=== PATIENT | male | born 1960 | race Caucasian/White ===

== ENCOUNTER 2016-06-02 21:50 | Emergency (ER) | payer MEDICARE, OTHER ==
[~2016-06-02] VITALS: Ht 167.6 cm; Wt 85.0 kg
[~2016-06-02 21:50] MED LIST: ASPI-664 PO; ATOR20TA38 PO; CLOP75TA27 PO; DULO30CA47 PO; GLIM4TAB PO; LANT3I SC; LISI-313 PO; METO-448 PO; MIRT15TA5 PO; NOVO3I SC; POLY17PO6 PO; TRAZ150T65 PO
[2016-06-02 21:58] VITALS: Ht 167.6 cm; Wt 85.0 kg
[2016-06-02] MEDS ORDERED: EPINEPHrine 1 MG INJ SC STA (22:18)
[2016-06-02] MEDS ORDERED: EPINEPHrine 1 MG INJ ONE (22:20)
--- NOTE | 2016-06-02 22:23 | ERD ---
ER Documentation Chief Complaint Date/Time DATE: 06/02/16 TIME: 22:21 Chief Complaint allergic reaction after taking chocolate w/ almnds 15 minutes ago HPI Patient is a 55-year-old male who ate some chocolate with almonds and at 15 minutes prior to presentation. He immediately felt generally bad with nausea and vomiting. He developed a diffuse red rash with sweating. He is never had this happen to him before. He was feeling fine prior to eating the chocolate with almonds. At the time of presentation after several episodes of vomiting he states he is actually feeling slightly better. He denies any chest pain, shortness of breath, sore throat, otalgia. He did feel a little dizzy earlier but denies any loss of consciousness. He has not had any diarrhea, dysuria, hematuria, flank pain, or back pain. He denies any abnormal bleeding or bruising. In the remainder of the systems are negative. ROS All systems reviewed and are negative except as per history of present illness. Medications Home Meds Active Scripts Polyethylene Glycol* (Miralax*) 17 Gm Powd.pack, 17 GM PO DAILY, #7 Prov:JANEEN TORIBIO MD 12/06/15 Aspirin* (Aspirin* EC) 81 Mg Tabec, 81 MG PO DAILY for 30 Days, 9 Refills Prov:JENNIFER POOL S. 03/12/15 Atorvastatin Calcium* (Atorvastatin Calcium*) 20 Mg Tab, 80 MG PO DAILY@21 for 30 Days, TAB 3 Refills Prov:JENNIFER POOL S. 03/12/15 Clopidogrel Bisulfate (Clopidogrel) 75 Mg Tab, 75 MG PO DAILY for 30 Days, TAB 9 Refills Prov:JENNIFER POOL S. 03/12/15 Reported Medications Duloxetine Hcl* (Duloxetine Hcl*) 30 Mg Capsule.dr, 30 MG PO DAILY, #30 CAP 12/06/15 Trazodone Hcl* (Trazodone Hcl*) 150 Mg Tablet, 150 MG PO QHS, #30 TAB 12/06/15 Mirtazapine* (Mirtazapine*) 15 Mg Tablet, 15 MG PO HS, TAB 12/06/15 Glimepiride* (Glimepiride*) 4 Mg Tablet, 4 MG PO WITH BREAKFAST, TAB 12/06/15 Insulin Glargine* (Lantus*) 100 Unit/Ml Soln, 10-12 UNIT SC BID, #1 VIAL 12/06/15 Insulin Aspart* (Novolog Insulin Pen*) 100 Unit/Ml Soln, 0 SC .SLIDING SCALE AC , EA WITH MEALS 12/06/15 Metoprolol Tartrate* (Lopressor*) 25 Mg Tab, 25 MG PO DAILY, #60 TAB 12/06/15 Lisinopril* (Lisinopril*) 5 Mg Tablet, 5 MG PO DAILY, #30 TAB 12/06/15 Allergies Allergies: Coded Allergies: No Known Allergy (Verified , 12/06/15) Uncoded Allergies: CAT (Allergy, Severe, SWELLING, 06/22/06) PMhx/Soc History of Surgery: Yes (PCI) Anesthesia Reaction: No Hx Neurological Disorder: No Hx Respiratory Disorders: No Hx Cardiac Disorders: Yes Hx Psychiatric Problems: No Hx Miscellaneous Medical Probl: Yes (diabetes, dyslipidemia.) Hx Alcohol Use: No Hx Substance Use: No Hx Tobacco Use: Yes (1 pack per day for over 35 years.) Physical Exam Vitals Vital Signs Date Time Temp Pulse Resp B/P Pulse Ox O2 Delivery O2 Flow Rate FiO2 06/03/16 01:02 95 18 128/99 99 Nasal Cannula 3.0 06/02/16 23:29 89 24 153/104 94 Nasal Cannula 2.0 06/02/16 21:58 98.3 98 20 67/47 98 Physical Exam Const: [] Well-developed well-nourished male on the bed in obvious distress. He is pale, diaphoretic, and covered with a diffuse erythematous rash. Head: Atraumatic normocephalic Eyes: Normal Conjunctiva ENT: Normal External Ears, Nose and Mouth. Neck: Full range of motion..~ No meningismus. Resp: Clear to auscultation bilaterally Cardio: Regular rate and rhythm, no murmurs Abd: Soft, non tender, non distended. Normal bowel sounds Skin: Pale and diaphoretic, covered with a diffuse erythematous rash Back: No midline or flank tenderness Ext: No cyanosis, or edema Neur: Awake and alert, oriented 3 with, with GCS of 15, moves all extremities equally, nonfocal Psych: Normal Mood and Affect Results 24 hrs Current Medications Medications (Trade) Dose Ordered Sig/Lucila Route PRN Reason Start Time Stop Time Status Last Admin Dose Admin Epinephrine (EPINEPHrine) 0.3 mg ONCE STAT SC 06/02/16 22:18 06/02/16 22:21 DC 06/02/16 22:26 Methylprednisolone Sodium Succinate (Solu-Medrol) 125 mg ONCE ONCE IV 06/02/16 22:30 06/02/16 22:31 DC 06/02/16 22:26 Diphenhydramine HCl 50 mg 50 mg ONCE ONCE IV 06/02/16 22:30 06/02/16 22:31 DC 06/02/16 22:27 Sodium Chloride (NS) 1,000 ml @ 1,000 mls/hr Q1H ONCE IV 06/02/16 22:30 06/02/16 23:29 DC 06/02/16 22:27 Albuterol (Proventil 0.083% (Neb)) 2.5 mg ONCE STAT HHN 06/02/16 22:31 06/02/16 22:32 DC 06/02/16 22:38 Ondansetron HCl (Zofran Inj) 4 mg ONCE STAT IV 06/03/16 00:01 06/03/16 00:05 DC 06/03/16 01:01 Procedures/MDM Differential includes but is not limited to acute anaphylaxis, allergic reaction , food allergy EKG: Rate/Rhythm: Normal Sinus Rhythm at 100 bpm, Q waves noted in leads III and aVF consistent with an old infarct, when compared to his prior EKG the T -wave inversions have resolved. QRS, ST, T-waves: No changes consistent w/ acute ischemia Impression: No evidence of ischemia or arrhythmia 0114: Patient is much improved at this point. His blood pressure has recovered. The redness of his skin has resolved. He is no longer diaphoretic and pale. His lungs are clear to auscultation. He appears stable for discharge home. Departure Diagnosis: Primary Impression: Acute anaphylaxis Encounter type: initial encounter Qualified Code: T78.2XXA - Acute anaphylaxis, initial encounter Condition: Stable Patient Instructions: Anaphylaxis, General Additional Instructions: Take the steroids for the next few days. Take the Benadryl for the next few days. If you have another reaction like tonight then you should auto inject the EpiPen and go immediately to the closest emergency department. SONNY ROCK Jun 02, 2016 22:23
[2016-06-02] MEDS ORDERED: METHYLPREDNISOLONE 125 MG INJ IV ONE (22:30)
[2016-06-02] MEDS ORDERED: SOD CHLORIDE 0.9% 1,000 ML IV ONE (22:30)
[2016-06-02] MEDS ORDERED: DIPHENHYDRAMINE 50 MG INJ IV ONE (22:30)
[2016-06-02] MEDS ORDERED: ALBUTEROL 0.083% (NEB) 2.5 MG/3 ML AMP HHN STA (22:31)
[2016-06-03] MEDS ORDERED: ONDANSETRON 4 MG INJ IV STA (00:01)
[2016-06-03 01:02] VITALS: BP 128/99; PULSE 95; RESP 18
[2016-06-03] MEDS ORDERED: PRED20TA PO (01:17)
[2016-06-03] MEDS ORDERED: DIPH25CA6 PO (01:18)
[2016-06-03] MEDS ORDERED: EPIN0.3P4 INJ (01:19)
== END 2016-06-03 01:47 | disposition home or self-care (01) ==
LOC: E/R 21:50
DX: T78.1XXA Other adverse food reactions, not elsewhere classified, initial encounter (principal); F17.210 Nicotine dependence, cigarettes, uncomplicated; E11.9 Type 2 diabetes mellitus without complications; I25.2 Old myocardial infarction; Z79.4 Long term (current) use of insulin; Z79.82 Long term (current) use of aspirin; Z79.84 Long term (current) use of oral hypoglycemic drugs
CPT/HCPCS: 82962; 93005; 96372; 96374; 96375; 99284; J0171; J1200; J2405; J2930; J7030

== ENCOUNTER 2017-08-03 15:47 | Observation (INO) | END 2017-08-05 17:35 | disposition home or self-care (01) ==

== ENCOUNTER 2018-04-22 03:53 | Observation (INO) | payer MEDICARE, OTHER ==
[~2018-04-22] VITALS: Ht 172.7 cm; Wt 84.0 kg
[~2018-04-22 03:53] MED LIST changes: -ASPI-664 PO; +ASPI-817 PO; -ATOR20TA38 PO; +CLOP75TA19 PO; -CLOP75TA27 PO; -DULO30CA47 PO; +DULO60CA59 PO; +EVOL140P SQ; +EXEN2VIA SQ; +FAMO20TA18 PO; +INSU200I4 SQ; -LANT3I SC; +METF100010 PO; -MIRT15TA5 PO; -POLY17PO6 PO; +TAMS0.4C2 PO
[2018-04-22] MEDS ORDERED: ONDANSETRON 4 MG INJ IV STA (04:40)
[2018-04-22] MEDS ORDERED: NITROGLYCERIN (SL) 0.4 MG TAB SL PRN ×2 (05:00→06:00)
--- NOTE | 2018-04-22 05:10 | ERD ---
ER Documentation Chief Complaint Chief Complaint PT C/O EPIGASTRIC PAIN ,RADIATES TO BACK,N/V AND SOB.RECENT STENT PLACEMENT HPI 57-year-old male with a history of CAD, hypertension, diabetes, CABG, with recent PCI yesterday and stent placement presenting for epigastric pain that started 4 hours prior to arrival. He describes it as pressure-like, aching, radiating to his back, with associated chills, nausea, and nonbloody vomiting. He states he felt better after he vomited but he currently still has pain in the center of his chest that is aching, 3 out of 10, nonradiating. Denies associated diaphoresis.No fevers, diarrhea, hematochezia. He has not filled his medications that he was prescribed yet as he was just discharged from the hospital yesterday. 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 ROS All systems reviewed and are negative except as per history of present illness. Medications Home Meds Reported Medications Pantoprazole* (Pantoprazole*) 40 Mg Tablet.dr, 40 MG PO DAILY for 30 Days, #30 04/22/18 Icosapent Ethyl (VASCEPA) 1 Gm Capsule, 1 GM PO for 30 Days, #120 04/22/18 Ticagrelor* (Brilinta*) 90 Mg Tablet, 90 MG PO for 30 Days, #60 04/22/18 Nitroglycerin* (Nitroglycerin* SL) 0.4 Mg Tab.subl, 0.4 MG SL for 90 Days, #100 04/22/18 Exenatide Microspheres (Bydureon) 2 Mg Vial, 2 MG SQ Q7D, VIAL 08/03/17 Aspirin* (Aspirin* EC) 81 Mg Tablet.dr, 81 MG PO DAILY, TAB 08/03/17 Insulin Aspart* (Novolog Insulin Pen*) 100 Unit/Ml Soln, 0 SC .SLIDING SCALE AC, EA INJECT 6-10 UNITS BID 08/03/17 Insulin Degludec (Tresiba Flextouch U-200) 200 Unit/1 Ml Insuln.pen, 0 SQ QHS INJECT 40 OR 50 UNITS 08/03/17 Evolocumab (Repatha Sureclick) 140 Mg/1 Ml Pen.injctr, 140 MG SQ Q 14D 08/03/17 Trazodone Hcl* (Trazodone Hcl*) 150 Mg Tablet, 150 MG PO QHS, #30 TAB 08/03/17 Duloxetine Hcl* (Duloxetine Hcl*) 60 Mg Capsule.dr, 60 MG PO DAILY, #30 CAP 08/03/17 Metoprolol Tartrate* (Lopressor*) 25 Mg Tab, 25 MG PO DAILY, #60 TAB 08/03/17 Metformin Hcl* (Metformin Hcl*) 1,000 Mg Tablet, 1000 MG PO WITH BREAKFAST DINNE, #60 TAB 08/03/17 Clopidogrel Bisulfate* (Clopidogrel Bisulfate*) 75 Mg Tablet, 75 MG PO DAILY, #30 TAB 08/03/17 Tamsulosin Hcl* (Tamsulosin Hcl*) 0.4 Mg Cap.er.24h, 0.4 MG PO DAILY, CAP 08/03/17 Glimepiride* (Glimepiride*) 4 Mg Tablet, 4 MG PO WITH BREAKFAST DINNE, TAB 08/03/17 Famotidine* (Famotidine*) 20 Mg Tablet, 20 MG PO BID, #60 TAB 08/03/17 Lisinopril* (Lisinopril*) 5 Mg Tablet, 5 MG PO DAILY, #30 TAB 08/03/17 Allergies Allergies: Coded Allergies: Zjdihph-Abf-Meg Reductase Inhibitor (Verified Allergy, Intermediate, myalgias, 04/22/18) cat dander (Verified Allergy, Unknown, 04/22/18) cat pelt standardized allergenic ex (Unverified Allergy, Unknown, 04/22/18) PMhx/Soc History of Surgery: Yes (CABG 2016) Anesthesia Reaction: No Hx Neurological Disorder: No Hx Respiratory Disorders: No Hx Cardiac Disorders: Yes (MIx3, CAD, HLD, stents ) Hx Psychiatric Problems: No Hx Miscellaneous Medical Probl: Yes (DM) Hx Alcohol Use: Yes Hx Substance Use: No Hx Tobacco Use: No Smoking Status: Former smoker FmHx Family History: No diabetes Physical Exam Vitals Vital Signs Date Temp Pulse Resp B/P (MAP) Pulse Ox O2 O2 Flow FiO2 Time Delivery Rate 04/22/18 Nasal 2 04:40 Cannula 04/22/18 98.1 85 15 139/93 100 Room Air 04:40 (108) 04/22/18 98.1 86 16 169/89 100 03:57 (115) Physical Exam Const: No acute distress Head: Atraumatic Eyes: Normal Conjunctiva ENT: Normal External Ears, Nose and Mouth. Neck: Full range of motion. No meningismus. Resp: Clear to auscultation bilaterally Cardio: Regular rate and rhythm, no murmurs. 2+ distal pulses in all 4 extremities Abd: Soft, non tender, non distended. Normal bowel sounds Skin: No petechiae or rashes Back: No midline or flank tenderness Ext: No cyanosis, or edema Neur: Awake and alert, normal speech, moving all extremities Psych: Normal Mood and Affect Result Diagram: 04/22/1844804/22/18448 Results 24 hrs Laboratory Tests Test 04/22/18 04:49 White Blood Count 10.6 10^3/ul Red Blood Count 4.54 10^6/ul Hemoglobin 14.0 g/dl Hematocrit 40.0 % Mean Corpuscular Volume 88.1 fl Mean Corpuscular Hemoglobin 30.8 pg Mean Corpuscular Hemoglobin Concent 35.0 g/dl Red Cell Distribution Width 11.7 % Platelet Count 257 10^3/UL Mean Platelet Volume 9.9 fl Immature Granulocytes % 0.500 % Neutrophils % 73.8 % Lymphocytes % 18.7 % Monocytes % 5.6 % Eosinophils % 0.8 % Basophils % 0.6 % Nucleated Red Blood Cells % 0.0 /100WBC Immature Granulocytes # 0.050 10^3/ul Neutrophils # 7.8 10^3/ul Lymphocytes # 2.0 10^3/ul Monocytes # 0.6 10^3/ul Eosinophils # 0.1 10^3/ul Basophils # 0.1 10^3/ul Nucleated Red Blood Cells # 0.0 10^3/ul Sodium Level 139 mmol/L Potassium Level 4.4 mmol/L Chloride Level 101 mmol/L Carbon Dioxide Level 25 mmol/L Anion Gap 13 Blood Urea Nitrogen 17 mg/dl Creatinine 0.84 mg/dl Est Glomerular Filtrat Rate mL/min > 60 mL/min Glucose Level 260 mg/dl Calcium Level 9.7 mg/dl Troponin I 0.031 ng/ml Current Medications Medications Dose Sig/Lucila Start Time Status Last (Trade) Ordered Route PRN Stop Time Admin Dose Reason Admin 1 tab Q5M UP TO 3 04/22/18 DC 04/22/18 Nitroglycerin DOSES PRN 05:00 04:54 SL .CHEST 04/22/18 16:01 (Nitroglyceri PAIN n (Sl Tab) 0.4 Mg) Ondansetron 4 mg ONCE STAT 04/22/18 DC 04/22/18 HCl (Zofran IV 04:40 04:54 Inj) 04/22/18 04:42 Aspirin 324 mg ONCE ONCE 04/22/18 DC 04/22/18 (Aspirin) PO 05:30 05:32 04/22/18 05:31 Procedures/MDM EMERGENT LABS AND DIAGNOSTIC STUDIES: Lab Results above were reviewed and interpreted by me. CBC: no anemia or evidence of infection BMP: hyperglycemic. No evidence of electrolyte abnormality, renal failure Troponin within normal limits, not indicative of cardiac ischemia 12-lead EKG #1 was interpreted by Ruperto Boyce MD: Normal Sinus Rhythm with ventricular rate of 82 beats per minute Left axis deviation Normal intervals Inferior Q waves consistent with old inferior infarct No acute ST or T wave changes suggestive of acute ischemia or STEMI. 12-lead EKG #2 was interpreted by Ruperto Boyce MD: Normal Sinus Rhythm with ventricular rate of 82 beats per minute Left axis deviation Normal intervals Inferior Q waves consistent with old inferior infarct No acute ST or T wave changes suggestive of acute ischemia or STEMI. Unchanged compared to previous Radiology Results as interpreted by Radiology below were reviewed by Parvin Boyce MD: Chest x-ray: Hypoventilatory changes with slightly increased bibasilar atelectasis. Atherosclerotic vascular calcifications including aorta, carotid and coronary arterial. Initial Nursing notes reviewed. Previous Medical Records requested via the Electronic Health Record. EMERGENCY DEPARTMENT COURSE / MEDICAL DECISION MAKING: Patients symptoms are concerning for a cardiac etiology. Other etiologies considered were PE, aortic dissection, pneumonia, pneumothorax, esophageal rupture. Vitals were notable for hypertension. He was treated with nitroglycerin with improvement of his symptoms. EKG showed no acute ischemia. Initial troponin negative. CXR grossly unremarkable. However, patient has high risk of adverse events. Patient is not safe for discharge and will need inpatient monitoring and further evaluation. Further workup will be deferred to the inpatient team. Departure Diagnosis: Primary Impression: Chest pain Chest pain type: precordial pain Qualified Codes: R07.2 - Precordial pain Condition: Fair MAURY BOYCE MD Apr 22, 2018 05:10
[2018-04-22] MEDS ORDERED: ASPIRIN 81 MG TAB PO ONE (05:30)
[2018-04-22] MEDS ORDERED: ICOS1CAP PO (05:40)
[2018-04-22] MEDS ORDERED: TICA90TA PO (05:40)
[2018-04-22] MEDS ORDERED: NITR0.4T32 SL (05:40)
[2018-04-22] MEDS ORDERED: PANT40TA4 PO (05:40)
[2018-04-22] MEDS ORDERED: ACETAMINOPHEN 325 MG TAB PO PRN ×2 (06:00)
[2018-04-22] MEDS ORDERED: morphine 2 MG INJ IV PRN (06:00)
[2018-04-22] MEDS ORDERED: NACL 0.9% 3 ML SYG IV SCH (06:00)
[2018-04-22] MEDS ORDERED: ONDANSETRON 4 MG INJ IV PRN ×2 (06:00)
[2018-04-22] MEDS ORDERED: HYDROCODONE/APAP (5/325) TAB PO PRN (06:00)
[2018-04-22] MEDS ORDERED: INSULIN ASPART [NOVOLOG] 3 ML PEN SC SCH (06:30)
[2018-04-22] MEDS ORDERED: Insulin NOVOLOG SS MILD Algorithm (NPO/TPN/ENTERAL FEEDS) SC SCH (06:30)
--- NOTE | 2018-04-22 08:27 | HP ---
Date/Time of Note Date/Time of Note DATE: 04/22/18 TIME: 08:16 Assessment/Plan VTE Prophylaxis SCD applied (from Nsg): Yes Pharmacological prophylaxis: other Lines/Catheters IV Catheter Type (from Nrsg): Saline Lock Assessment/Plan Problems: (1) Chest pain Status: Acute Comment: He reportedly is status post PCI with stenting in the last 48 hours. He will be on Brilinta which is apparently what he had been on at discharge. My attempts to get an accurate rendition of his medication regimen from his family have not been successful despite multiple phone attempts. I will ask cardiology to see him to see if we can work out some of the details here. Qualifiers: Chest pain type: precordial pain Qualified Codes: R07.2 - Precordial pain (2) Systolic CHF with reduced left ventricular function, NYHA class 2 Status: Chronic Comment: Maintain medication treatment. (3) 3-vessel coronary artery disease Status: Chronic Comment: Noted and status post bypass, but recurrent disease. (4) Diabetes mellitus type 2 in nonobese Status: Chronic Comment: Maintain medication control. Given the recurrent disease he would be appropriate for usage of drugs that have had recent study evidence of helping to reduce this. This would be a drug such as Victoza, and the SGL T2 inhibitors (5) Mixed hyperlipidemia due to type 2 diabetes mellitus Status: Chronic Comment: Aggressive treatment. (6) Status post primary angioplasty with coronary stent Onset Date: ~ 04/20/2018 Status: Acute Comment: Brilinta and cardiology consult (7) History of four vessel coronary artery bypass graft Onset Date: ~ 06/29/2016 Status: Acute Comment: Noted Result Diagram: 04/22/18 0449 04/22/18 0449 Results 24hrs Laboratory Tests Test 04/22/18 04:49 White Blood Count 10.6 Red Blood Count 4.54 L Hemoglobin 14.0 Hematocrit 40.0 L Mean Corpuscular Volume 88.1 Mean Corpuscular Hemoglobin 30.8 Mean Corpuscular Hemoglobin Concent 35.0 Red Cell Distribution Width 11.7 Platelet Count 257 Mean Platelet Volume 9.9 Immature Granulocytes % 0.500 H Neutrophils % 73.8 Lymphocytes % 18.7 Monocytes % 5.6 Eosinophils % 0.8 Basophils % 0.6 Nucleated Red Blood Cells % 0.0 Immature Granulocytes # 0.050 H Neutrophils # 7.8 H Lymphocytes # 2.0 Monocytes # 0.6 Eosinophils # 0.1 Basophils # 0.1 Nucleated Red Blood Cells # 0.0 Sodium Level 139 Potassium Level 4.4 Chloride Level 101 Carbon Dioxide Level 25 Anion Gap 13 Blood Urea Nitrogen 17 Creatinine 0.84 Est Glomerular Filtrat Rate mL/min > 60 Glucose Level 260 H Calcium Level 9.7 Troponin I 0.031 HPI/ROS Admit Date/Time Admit Date/Time April 22, 2018 Hx of Present Illness 57-year-old [place] gentleman who was at [facility]. He had presented there with acute coronary symptoms and reportedly had PCI and stenting performed on April 20, 2018. He was discharged on 04/21/2018 but did not have a chance to go to the pharmacy to picker and sorter load and unload his medications. He reports he developed some symptoms, and then came here. He did not bring along any of the documentation paperwork her medication list or prescriptions from [facility] when he came here. I believe that he had the procedure performed by either Dr. Calabrese or Dr. Cesario GEE Constitutional: no complaints (Denies fevers chills or sweats) Eyes: no complaints ENT: no complaints Respiratory: no complaints Cardiovascular: chest pain (Accompanied with nausea and epigastric pain recently without symptoms) Gastrointestinal: no complaints Genitourinary: no complaints Musculoskeletal: no complaints Skin: no complaints Neurologic: no complaints Endocrine: no complaints Additional Comments My attempts to reach family members by using all the phone numbers in our records was unsuccessful and I have left voicemail is x3 PMH/Family/Social Past Medical History Medical History: angina, congestive heart failure, coronary artery disease, diabetes, high cholesterol, hypertension, other Medications Current Medications Nitroglycerin (Nitroglycerin (Sl Tab) 0.4 Mg) 1 tab Q5M UP TO 3 DOSES PRN SL .CHEST PAIN Last administered on 04/22/18at 04:54; Admin Dose 1 TAB; Start 04/22/18 at 05:00 Ondansetron HCl (Zofran Inj) 4 mg ER BRIDGE PRN IV NAUSEA/VOMITING; Start 04/07 08/23 at 06:00; Stop 04/23/18 at 05:59 Acetaminophen (Tylenol Tab) 650 mg ER BRIDGE PRN PO .MILD PAIN 1-3 OR TEMP; Start 04/22/18 at 06:00; Stop 04/23/18 at 05:59 Dextrose/Sodium Chloride 1,000 ml @ 70 mls/hr [id number] IV ; Start 04/22/18 at 05:58 IV Flush (NS 3 ml) 3 ml PER PROTOCOL IV ; Start 04/22/18 at 06:00 Ondansetron HCl (Zofran Inj) 4 mg Q6H PRN IV NAUSEA/VOMITING; Start 04/22/18 at 06:00 Nitroglycerin (Nitroglycerin (Sl Tab) 0.4 Mg) 1 tab Q5M PRN SL .CHEST PAIN; Start 04/22/18 at 06:00 Acetaminophen (Tylenol Tab) 650 mg Q6H PRN PO .PAIN 1-3 OR TEMP; Start 04/22/18 at 06:00 Acetaminophen/ Hydrocodone Bitart ([place] (5/325)) 1 tab Q6H PRN PO .PAIN 4-6; Start 04/22/18 at 06:00 Morphine Sulfate (morphine) 2 mg Q4H PRN IV .PAIN 7-10; Start 04/22/18 at 06:00 Duloxetine HCl (Cymbalta) 60 mg DAILY PO ; Start 04/22/18 at 09:00 Lisinopril (Zestril) 5 mg DAILY PO ; Start 04/22/18 at 09:00 Metoprolol Tartrate (Lopressor) 25 mg DAILY PO ; Start 04/22/18 at 09:00 Pantoprazole (Protonix Tab) 40 mg DAILY PO ; Start 04/22/18 at 09:00 Ticagrelor (Brilinta) 90 mg BID PO ; Start 04/22/18 at 09:00 Diagnostic Test (Pha) (Accu-Chek) 1 ea 02 XX ; Start 04/23/18 at 02:00 Aspirin (Aspirin) 81 mg DAILY PO ; Start 04/23/18 at 09:00 Insulin Aspart (Novolog Insulin Pen) (Adult SC Insulin - Mild Algorithm)... Q6 SC ; Start 04/22/18 at 06:30 Coded Allergies: cat dander (Verified Allergy, Unknown, 04/22/18) cat pelt standardized allergenic ex (Unverified Allergy, Unknown, 04/22/18) Past Surgical History Past Surgical Hx: no surgical history, angioplasty, coronary bypass surgery Family History Significant Family History: no pertinent family hx, diabetes, hypertension Social History Alcohol Use: none Smoking Status: Former smoker Drug Use: none Exam/Review of Systems Vital Signs Vitals Vital Signs Date Temp Pulse Resp B/P (MAP) Pulse Ox O2 O2 Flow FiO2 Time Delivery Rate 04/22/18 98.2 90 16 100/68 99 Room Air 06:45 (79) 04/22/18 2 04:40 Exam Constitutional: alert, oriented Psych: no complaints, anxiety Head: normocephalic, atraumatic Eyes: nl conjunctiva, EOMI, nl lids, nl sclera, PERRL ENMT: nl external ears & nose, nl lips & teeth, nl nasal mucosa & septum Neck: supple, non-tender Respiratory: clear to auscultation, normal air movement Cardiovascular: regular rate and rhythm, nl pulses, other (Midline sternotomy scar) Gastrointestinal: soft, nl liver, spleen, non-tender Musculoskeletal: nl extremities to inspection Extremities: normal pulses Neurological: BARTENDER MANAGER II-XII intact, nl mental status, nl speech ALEXIS OBREGON MD Apr 22, 2018 08:27
[2018-04-22] MEDS ORDERED: NON-FORMULARY/PATIENT OWN MED (Exenatide Microspheres (Bydureon) 2 MG) SQ SCH (08:30)
[2018-04-22] MEDS: DEXTROSE 5%-0.45% NACL 1,000 ML IV SCH ×3 (08:45→22:00)
[2018-04-22] MEDS ORDERED: METOPROLOL 25 MG TAB PO SCH (09:00)
[2018-04-22] MEDS ORDERED: ASPIRIN 81 MG TAB PO SCH (09:00)
[2018-04-22] MEDS: INSULIN ASPART [NOVOLOG] 3 ML PEN SC SCH ×4 (09:30→21:19)
[2018-04-22] MEDS: FAMOTIDINE 20 MG TAB PO SCH ×2 (09:51→21:15)
[2018-04-22] MEDS: FISH OIL 1,000 MG CAP PO SCH ×2 (09:51→21:13)
[2018-04-22] MEDS: DULOXETINE 30 MG CAP DR PO SCH (09:51)
[2018-04-22] MEDS: PANTOPRAZOLE (EC) 40 MG TAB PO SCH (09:51)
[2018-04-22] MEDS: FINASTERIDE 5 MG TAB PO SCH (09:51)
[2018-04-22] MEDS: TICAGRELOR 90 MG TABLET PO SCH ×2 (09:51→21:19)
[2018-04-22] MEDS ORDERED: GLUCOSE GEL 15 GRAM TUBE PO PRN ×2 (10:00)
[2018-04-22] MEDS ORDERED: GLUCOSE GEL 15 GRAM TUBE BUCCAL PRN (10:00)
[2018-04-22] MEDS ORDERED: GLUCAGON 1 MG INJ IM PRN (10:00)
[2018-04-22] MEDS ORDERED: DEXTROSE 50% 50 ML SYRINGE IV PRN ×2 (10:00)
[2018-04-22] MEDS: ACCU-CHEK XX SCH ×6 (10:00→21:00)
[2018-04-22] MEDS: METOPROLOL 25 MG TAB PO SCH ×2 (10:13→21:15)
[2018-04-22] MEDS: LISINOPRIL 5 MG TAB PO SCH (10:20)
[2018-04-22] MEDS ORDERED: ACCU-CHEK XX SCH (11:30)
--- NOTE | 2018-04-22 14:16 | CONS ---
Assessment/Plan Assessment/Plan Hospital Course (Demo Recall) 1. Chest pain appears to be nonanginal clinically 2. Coronary artery disease 3. History of recent PCI 4. History of coronary bypass graft 5. Diabetes 6. Ischemic cardiomyopathy 7. History of hypertension 8. History of dyslipidemia on PCS canine inhibitors at home Recommendations: Continue with aspirin and Brilinta. Importance of compliant with Brilinta were discussed with the patient given the fact that he has reported who have had PCI/stent done 2 days ago I have asked the nursing staff to obtain the old records from [facility]. No evidence of ST elevation MA with stent thrombosis of the EKG is noted. We will try to review the recent angiogram report. DC planning if patient does not have any significant other obstructive coronary artery that needs to be intervened on Continue with the beta-gaurav. Is not on a statin but is already on PCS canine inhibitor at home Continue KARI inhibitor as tolerated. Diabetic management as per internal medicine. Outpatient cardiology follow-up with his regular rn placement Esteban. Thank you for his referral. We will continue to follow along with you DIVINA YAN MD [facility] Consultation Date/Type/Reason Admit Date/Time April 22, 2018 Date of Consultation: Apr 22, 2018 Type of Consult Cardiology Reason for Consultation CHEST PAIN Requesting Provider: ALEXIS OBREGON MD Date/Time of Note DATE: 04/22/18 TIME: 14:11 Hx of Present Illness Interventional cardiology consultation note Chief complaint: Chest pain Reason for consult: Chest pain History of present illness: Thank you for this referral. History was obtained from the patient who is a poor historian. From discussion with the staff and physician and from review of the old chart This is a pleasant 49-year-old [place] gentleman with history of coronary artery disease status post three-vessel bypass surgery, who came to emergency room last night with complaint of chest pain. Patient states that 2 days ago he underwent elective coronary angiography and PCI at [facility]. He was discharged yesterday morning. Last night for about 4 hours he had anterior and right-sided chest pain. Patient is a poor historian and cannot describe the pain well. But he stated the pain was severe. The pain has resolved now. Allergies: No known drug allergies Medications he does not remember well Family history: Positive for coronary artery disease Social history: Has quit smoking Past medical history: Coronary artery disease status post MA status post multiple PCI's in the past status post coronary bypass graft hypertension dyslipidemia diabetes Review of system: Patient denies all others except for above-mentioned Past Medical History Home Meds Reported Medications Pantoprazole* (Pantoprazole*) 40 Mg Tablet.dr, 40 MG PO DAILY for 30 Days, #30 04/22/18 Icosapent Ethyl (VASCEPA) 1 Gm Capsule, 1 GM PO for 30 Days, #120 04/22/18 Ticagrelor* (Brilinta*) 90 Mg Tablet, 90 MG PO for 30 Days, #60 04/22/18 Nitroglycerin* (Nitroglycerin* SL) 0.4 Mg Tab.subl, 0.4 MG SL for 90 Days, #100 04/22/18 Exenatide Microspheres (Bydureon) 2 Mg Vial, 2 MG SQ Q7D, VIAL 08/03/17 Aspirin* (Aspirin* EC) 81 Mg Tablet.dr, 81 MG PO DAILY, TAB 08/03/17 Insulin Aspart* (Novolog Insulin Pen*) 100 Unit/Ml Soln, 0 SC .SLIDING SCALE AC, EA INJECT 6-10 UNITS BID 08/03/17 Insulin Degludec (Tresiba Flextouch U-200) 200 Unit/1 Ml Insuln.pen, 0 SQ QHS INJECT 40 OR 50 UNITS 08/03/17 Evolocumab (Repatha Sureclick) 140 Mg/1 Ml Pen.injctr, 140 MG SQ Q 14D 08/03/17 Trazodone Hcl* (Trazodone Hcl*) 150 Mg Tablet, 150 MG PO QHS, #30 TAB 08/03/17 Duloxetine Hcl* (Duloxetine Hcl*) 60 Mg Capsule.dr, 60 MG PO DAILY, #30 CAP 08/03/17 Metoprolol Tartrate* (Lopressor*) 25 Mg Tab, 25 MG PO DAILY, #60 TAB 08/03/17 Metformin Hcl* (Metformin Hcl*) 1,000 Mg Tablet, 1000 MG PO WITH BREAKFAST DINNE, #60 TAB 08/03/17 Clopidogrel Bisulfate* (Clopidogrel Bisulfate*) 75 Mg Tablet, 75 MG PO DAILY, #30 TAB 08/03/17 Tamsulosin Hcl* (Tamsulosin Hcl*) 0.4 Mg Cap.er.24h, 0.4 MG PO DAILY, CAP 08/03/17 Glimepiride* (Glimepiride*) 4 Mg Tablet, 4 MG PO WITH BREAKFAST DINNE, TAB 08/03/17 Famotidine* (Famotidine*) 20 Mg Tablet, 20 MG PO BID, #60 TAB 08/03/17 Lisinopril* (Lisinopril*) 5 Mg Tablet, 5 MG PO DAILY, #30 TAB 08/03/17 Medications Current Medications Nitroglycerin (Nitroglycerin (Sl Tab) 0.4 Mg) 1 tab Q5M UP TO 3 DOSES PRN SL .CHEST PAIN Last administered on 04/22/18at 04:54; Admin Dose 1 TAB; Start 04/22/18 at 05:00 Ondansetron HCl (Zofran Inj) 4 mg ER BRIDGE PRN IV NAUSEA/VOMITING; Start 04/22/18 at 06:00; Stop 04/23/18 at 05:59 Acetaminophen (Tylenol Tab) 650 mg ER BRIDGE PRN PO .MILD PAIN 1-3 OR TEMP; S tart 04/22/18 at 06:00; Stop 04/23/18 at 05:59 Dextrose/Sodium Chloride 1,000 ml @ 70 mls/hr [id number] IV Last administered on 04/22/18at 08:45; Admin Dose 70 MLS/HR; Start 04/22/18 at 05:58 IV Flush (NS 3 ml) 3 ml PER PROTOCOL IV ; Start 04/22/18 at 06:00 Ondansetron HCl (Zofran Inj) 4 mg Q6H PRN IV NAUSEA/VOMITING; Start 04/22/18 at 06:00 Nitroglycerin (Nitroglycerin (Sl Tab) 0.4 Mg) 1 tab Q5M PRN SL .CHEST PAIN; Start 04/22/18 at 06:00 Acetaminophen (Tylenol Tab) 650 mg Q6H PRN PO .PAIN 1-3 OR TEMP; Start 04/22/18 at 06:00 Acetaminophen/ Hydrocodone Bitart ([place] (5/325)) 1 tab Q6H PRN PO .PAIN 4-6; Start 04/22/18 at 06:00 Morphine Sulfate (morphine) 2 mg Q4H PRN IV .PAIN 7-10; Start 04/22/18 at 06:00 Duloxetine HCl (Cymbalta) 60 mg DAILY PO Last administered on 04/22/18 09:51; Admin Dose 60 MG; Start 04/22/18 at 09:00 Lisinopril (Zestril) 5 mg DAILY PO Last administered on 04/22/18 10:20; Admin Dose 5 MG; Start 04/22/18 at 09:00 Pantoprazole (Protonix Tab) 40 mg DAILY PO Last administered on 04/22/18 09:51; Admin Dose 40 MG; Start 04/22/18 at 09:00 Ticagrelor (Brilinta) 90 mg BID PO Last administered on 04/22/18 09:51; Admin Dose 90 MG; Start 04/22/18 at 09:00 Diagnostic Test (Pha) (Accu-Chek) 1 ea 02 XX ; Start 04/23/18 at 02:00 Aspirin (Aspirin) 81 mg DAILY PO ; Start 04/23/18 at 09:00 Metoprolol Tartrate (Lopressor) 25 mg BID PO Last administered on 04/22/18 10:13; Admin Dose 25 MG; Start 04/22/18 at 09:00 Famotidine (Pepcid) 20 mg BID PO Last administered on 04/22/18 09:51; Admin Dose 20 MG; Start 04/22/18 at 09:00 Metformin HCl (Glucophage) 1,000 mg WITH BREAKFAST DINNE PO ; Start 04/22/18 at 18:00 Tamsulosin HCl (Flomax) 0.4 mg DAILY@2100 PO ; Start 04/22/18 at 21:00 Trazodone HCl (Desyrel) 150 mg QHS PO ; Start 04/22/18 at 21:00 Miscellaneous Information 2 mg Q7D SQ ; Start 04/22/18 at 08:30; Status UNV Fish Oil (Fish Oil) 2,000 mg BID PO Last administered on 04/22/18 09:51; Admin Dose 2,000 MG; Start 04/22/18 at 09:00 Diagnostic Test (Pha) (Accu-Chek) 1 ea AC MEALS AND BEDTIME XX ; Start 04/22/18 at 11:30 Finasteride (Proscar) 5 mg QAM PO Last administered on 04/22/18 09:51; Admin Dose 5 MG; Start 04/22/18 at 09:00 Diagnostic Test (Pha) (Accu-Chek) 1 ea 02 XX ; Start 04/23/18 at 02:00 Diagnostic Test (Pha) (Accu-Chek) 1 ea 2 HOURS AFTER MEALS XX ; Start 04/22/18 at 10:00 Insulin Glargine (Lantus) 25 units DAILY@2000 SC ; Start 04/22/18 at 20:00 Insulin Aspart (Novolog Insulin Pen) NOVOLOG *MODERATE* ALGORITHM WITH MEALS BEDTIME SC ; Start 04/22/18 at 09:30 Empaglifozin (Jardiance) 10 mg DAILY@08 PO ; Start 04/23/18 at 08:00 Diagnostic Test (Pha) (Accu-Chek) 1 ea AC MEALS AND BEDTIME XX ; Start 04/22/18 at 11:30 Miscellaneous Information 1 ea NOTE XX ; Start 04/22/18 at 10:00 Glucose (Glutose) 15 gm Q15M PRN PO DECREASED GLUCOSE; Start 04/22/18 at 10:00 Glucose (Glutose) 22.5 gm Q15M PRN PO DECREASED GLUCOSE; Start 04/22/18 at 10:00 Dextrose (D50w Syringe) 25 ml Q15M PRN IV DECREASED GLUCOSE; Start 04/22/18 at 10:00 Dextrose (D50w Syringe) 50 ml Q15M PRN IV DECREASED GLUCOSE; Start 04/22/18 at 10:00 Glucagon (Glucagen) 1 mg Q15M PRN IM DECREASED GLUCOSE; Start 04/22/18 at 10:00 Glucose (Glutose) 15 gm Q15M PRN BUCCAL DECREASED GLUCOSE; Start 04/22/18 at 10:00 Allergies: Coded Allergies: cat dander (Verified Allergy, Unknown, 04/22/18) cat pelt standardized allergenic ex (Unverified Allergy, Unknown, 04/22/18) Past Surgical History Past Surgical Hx: no surgical history, angioplasty, coronary bypass surgery Social History Alcohol Use: none Smoking Status: Former smoker Drug Use: none Exam/Review of Systems Vital Signs Vitals Vital Signs Date Temp Pulse Resp B/P (MAP) Pulse Ox O2 O2 Flow FiO2 Time Delivery Rate 04/22/18 97.7 83 18 102/76 98 Room Air 12:55 (85) 04/22/18 2.0 09:56 Exam Exam General: no acute distress HEENT: NC/AT. pupils are equal. round. NECK: NO JVD. no stridor. CV: RRR. systolic murmur; no gallop or rubs. PULM: no wheezing or rhonchi. GI: SOFT, NT, ND, no rebound or guarding Extremity: trace B/L LE edema. no clubbing. neuro: awake and alert, OX3. Psych: calm and pleasant rectal: deferred : normal EKG was personally showed normal sinus rhythm inferior infarct age undetermined Labs Result Diagram: 04/22/189 04/22/189 Results 24hrs Laboratory Tests Test 04/22/18 04:49 04/22/18 08:38 04/22/18 12:40 04/22/18 13:41 White Blood Count 10.6 Red Blood Count 4.54 L Hemoglobin 14.0 Hematocrit 40.0 L Mean Corpuscular 88.1 Volume Mean Corpuscular 30.8 Hemoglobin Mean Corpuscular 35.0 Hemoglobin Concent Red Cell 11.7 Distribution Width Platelet Count 257 Mean Platelet Volume 9.9 Immature 0.500 H Granulocytes % Neutrophils % 73.8 Lymphocytes % 18.7 Monocytes % 5.6 Eosinophils % 0.8 Basophils % 0.6 Nucleated Red Blood 0.0 Cells % Immature 0.050 H Granulocytes # Neutrophils # 7.8 H Lymphocytes # 2.0 Monocytes # 0.6 Eosinophils # 0.1 Basophils # 0.1 Nucleated Red Blood 0.0 Cells # Sodium Level 139 Potassium Level 4.4 Chloride Level 101 Carbon Dioxide Level 25 Anion Gap 13 Blood Urea Nitrogen 17 Creatinine 0.84 Est Glomerular > 60 Filtrat Rate mL/min Glucose Level 260 H Calcium Level 9.7 Troponin I 0.031 0.026 Bedside Glucose 180 119 Creatine Kinase 117 Creatine Kinase 1.2 Index Creatinine Kinase MB 1.46 (Mass) Medications Medications Current Medications Nitroglycerin (Nitroglycerin (Sl Tab) 0.4 Mg) 1 tab Q5M UP TO 3 DOSES PRN SL .CHEST PAIN Last administered on 04/22/18at 04:54; Admin Dose 1 TAB; Start 04/22/18 at 05:00 Ondansetron HCl (Zofran Inj) 4 mg ER BRIDGE PRN IV NAUSEA/VOMITING; Start 04/22/18 at 06:00; Stop 04/23/18 at 05:59 Acetaminophen (Tylenol Tab) 650 mg ER BRIDGE PRN PO .MILD PAIN 1-3 OR TEMP; Start 04/22/18 at 06:00; Stop 04/23/18 at 05:59 Dextrose/Sodium Chloride 1,000 ml @ 70 mls/hr [id number] IV Last administered on 04/22/18at 08:45; Admin Dose 70 MLS/HR; Start 04/22/18 at 05:58 IV Flush (NS 3 ml) 3 ml PER PROTOCOL IV ; Start 04/22/18 at 06:00 Ondansetron HCl (Zofran Inj) 4 mg Q6H PRN IV NAUSEA/VOMITING; Start 04/22/18 at 06:00 Nitroglycerin (Nitroglycerin (Sl Tab) 0.4 Mg) 1 tab Q5M PRN SL .CHEST PAIN; Start 04/22/18 at 06:00 Acetaminophen (Tylenol Tab) 650 mg Q6H PRN PO .PAIN 1-3 OR TEMP; Start 04/22/18 at 06:00 Acetaminophen/ Hydrocodone Bitart ([place] (5/325)) 1 tab Q6H PRN PO .PAIN 4-6; Start 04/22/18 at 06:00 Morphine Sulfate (morphine) 2 mg Q4H PRN IV .PAIN 7-10; Start 04/22/18 at 06:00 Duloxetine HCl (Cymbalta) 60 mg DAILY PO Last administered on 04/22/18at 09:51; Admin Dose 60 MG; Start 04/22/18 at 09:00 Lisinopril (Zestril) 5 mg DAILY PO Last administered on 04/22/18at 10:20; Admin Dose 5 MG; Start 04/22/18 at 09:00 Pantoprazole (Protonix Tab) 40 mg DAILY PO Last administered on 04/22/18at 09:51; Admin Dose 40 MG; Start 04/22/18 at 09:00 Ticagrelor (Brilinta) 90 mg BID PO Last administered on 04/22/18at 09:51; Admin Dose 90 MG; Start 04/22/18 at 09:00 Diagnostic Test (Pha) (Accu-Chek) 1 ea 02 XX ; Start 04/23/18 at 02:00 Aspirin (Aspirin) 81 mg DAILY PO ; Start 04/23/18 at 09:00 Metoprolol Tartrate (Lopressor) 25 mg BID PO Last administered on 04/22/18at 10:13; Admin Dose 25 MG; Start 04/22/18 at 09:00 Famotidine (Pepcid) 20 mg BID PO Last administered on 04/22/18at 09:51; Admin Dose 20 MG; Start 04/22/18 at 09:00 Metformin HCl (Glucophage) 1,000 mg WITH BREAKFAST DINNE PO ; Start 04/22/18 at 18:00 Tamsulosin HCl (Flomax) 0.4 mg DAILY@2100 PO ; Start 04/22/18 at 21:00 Trazodone HCl (Desyrel) 150 mg QHS PO ; Start 04/22/18 at 21:00 Miscellaneous Information 2 mg Q7D SQ ; Start 04/22/18 at 08:30; Status UNV Fish Oil (Fish Oil) 2,000 mg BID PO Last administered on 04/22/18at 09:51; Admin Dose 2,000 MG; Start 04/22/18 at 09:00 Diagnostic Test (Pha) (Accu-Chek) 1 ea AC MEALS AND BEDTIME XX ; Start 04/22/18 at 11:30 Finasteride (Proscar) 5 mg QAM PO Last administered on 04/22/18at 09:51; Admin Dose 5 MG; Start 04/22/18 at 09:00 Diagnostic Test (Pha) (Accu-Chek) 1 ea 02 XX ; Start 04/23/18 at 02:00 Diagnostic Test (Pha) (Accu-Chek) 1 ea 2 HOURS AFTER MEALS XX ; Start 04/22/18 at 10:00 Insulin Glargine (Lantus) 25 units DAILY@2000 SC ; Start 04/22/18 at 20:00 Insulin Aspart (Novolog Insulin Pen) NOVOLOG *MODERATE* ALGORITHM WITH MEALS BEDTIME SC ; Start 04/22/18 at 09:30 Empaglifozin (Jardiance) 10 mg DAILY@08 PO ; Start 04/23/18 at 08:00 Diagnostic Test (Pha) (Accu-Chek) 1 ea AC MEALS AND BEDTIME XX ; Start 04/22/18 at 11:30 Miscellaneous Information 1 ea NOTE XX ; Start 04/22/18 at 10:00 Glucose (Glutose) 15 gm Q15M PRN PO DECREASED GLUCOSE; Start 04/22/18 at 10:00 Glucose (Glutose) 22.5 gm Q15M PRN PO DECREASED GLUCOSE; Start 04/22/18 at 10:00 Dextrose (D50w Syringe) 25 ml Q15M PRN IV DECREASED GLUCOSE; Start 04/22/18 at 10:00 Dextrose (D50w Syringe) 50 ml Q15M PRN IV DECREASED GLUCOSE; Start 04/22/18 at 10:00 Glucagon (Glucagen) 1 mg Q15M PRN IM DECREASED GLUCOSE; Start 04/22/18 at 10:00 Glucose (Glutose) 15 gm Q15M PRN BUCCAL DECREASED GLUCOSE; Start 04/22/18 at 10:00 DIVINA YAN MD Apr 22, 2018 14:16
[2018-04-22 15:54] VITALS: PULSE 79
[2018-04-22 16:10] VITALS: Ht 172.7 cm; Wt 84.0 kg
[2018-04-22] MEDS: metFORMIN 500 MG TAB PO SCH (17:52)
[2018-04-22 19:26] VITALS: BP 113/69; PULSE 77; RESP 18
[2018-04-22 20:27] VITALS: PULSE 92
[2018-04-22] MEDS: TAMSULOSIN (SR) 0.4 MG CAP PO SCH (21:14)
[2018-04-22] MEDS: traZODone 50 MG TAB PO SCH (21:15)
[2018-04-22] MEDS: INSULIN GLARGINE [LANTus] (100 UNITS/ML) SYG SC SCH (21:29)
[2018-04-22 23:41] VITALS: BP_SYST 79; BP_SYST 91; BP_DIAS 52; BP_DIAS 57; PULSE 87; PULSE 90; RESP 18
[2018-04-23] VITALS (12 sets, daily range): BP systolic 86–125; BP diastolic 49–77; PULSE 68–84; RESP 16–19
[2018-04-23] MEDS ORDERED: ACCU-CHEK XX SCH (02:00)
[2018-04-23] MEDS: ACCU-CHEK XX SCH ×8 (02:00→21:02)
[2018-04-23] MEDS: INSULIN ASPART [NOVOLOG] 3 ML PEN SC SCH ×4 (07:55→21:00)
[2018-04-23] MEDS: PANTOPRAZOLE (EC) 40 MG TAB PO SCH (08:53)
[2018-04-23] MEDS: FISH OIL 1,000 MG CAP PO SCH ×2 (08:53→20:59)
[2018-04-23] MEDS: ASPIRIN 81 MG TAB PO SCH (08:53)
[2018-04-23] MEDS: FINASTERIDE 5 MG TAB PO SCH (08:53)
[2018-04-23] MEDS: DULOXETINE 30 MG CAP DR PO SCH (08:54)
[2018-04-23] MEDS: EMPAGLIFLOZIN 10 MG TABLET PO SCH (08:54)
[2018-04-23] MEDS: metFORMIN 500 MG TAB PO SCH ×2 (08:57→17:33)
[2018-04-23] MEDS: LISINOPRIL 5 MG TAB PO SCH (09:00)
[2018-04-23] MEDS: METOPROLOL 25 MG TAB PO SCH ×2 (09:00→21:01)
[2018-04-23] MEDS: TICAGRELOR 90 MG TABLET PO SCH ×2 (09:00→21:05)
[2018-04-23] MEDS: FAMOTIDINE 20 MG TAB PO SCH ×2 (09:02→21:06)
--- NOTE | 2018-04-23 10:53 | DS ---
Date/Time of Note Date/Time of Note DATE: 04/23/18 TIME: 10:50 Discharge Summary Admission/Discharge Info Admit Date/Time Apr 22, 2018 at 05:54 Discharge Date/Time April 23, 2018 Discharge Diagnosis Gastroenteritis; coronary artery disease; status post PCI with stenting on 20 April 2018; hypertension; hyperlipidemia; diabetes mellitus type 2; coronary artery disease; status post CABG; systolic CHF Patient Condition: Fair Consults Cardiology-Dr. Forbes Hx of Present Illness 57-year-old [place] gentleman who was at [facility]. He had presented there with acute coronary symptoms and reportedly had PCI and stenting performed on April 20, 2018. 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 He reports he developed some symptoms, and then came here. He did not bring along any of the documentation paperwork her medication list or prescriptions from [facility] when he came here. I believe that he had the procedure performed by either Dr. Calabrese or Dr. Nassar Hospital Course 57-year-old gentleman who came to [facility] emergency room with some abdominal symptoms. The unusual part was that he had had had PCI with stenting literally within 36 hours of presenting in a not been taking his Brilinta. Fortunately cardiology feels that he has not had an issue but he absolutely positively must be on his Brilinta and antiplatelet therapy. He is now stable for discharge to his home and will follow up with his regular panel installer. Home Meds Reported Medications Pantoprazole* (Pantoprazole*) 40 Mg Tablet., 40 MG PO DAILY for 30 Days, #30 04/22/18 Icosapent Ethyl (VASCEPA) 1 Gm Capsule, 1 GM PO for 30 Days, #120 04/22/18 Ticagrelor* (Brilinta*) 90 Mg Tablet, 90 MG PO for 30 Days, #60 04/22/18 Nitroglycerin* (Nitroglycerin* SL) 0.4 Mg Tab.subl, 0.4 MG SL for 90 Days, #100 04/22/18 Exenatide Microspheres (Bydureon) 2 Mg Vial, 2 MG SQ Q7D, VIAL 08/03/17 Aspirin* (Aspirin* EC) 81 Mg Tablet., 81 MG PO DAILY, TAB 08/03/17 Insulin Aspart* (Novolog Insulin Pen*) 100 Unit/Ml Soln, 0 SC .SLIDING SCALE AC, EA INJECT 6-10 UNITS BID 08/03/17 Insulin Degludec (Tresiba Flextouch U-200) 200 Unit/1 Ml Insuln.pen, 0 SQ QHS INJECT 40 OR 50 UNITS 08/03/17 Evolocumab (Repatha Sureclick) 140 Mg/1 Ml Pen.injctr, 140 MG SQ Q 14D 08/03/17 Trazodone Hcl* (Trazodone Hcl*) 150 Mg Tablet, 150 MG PO QHS, #30 TAB 08/03/17 Duloxetine Hcl* (Duloxetine Hcl*) 60 Mg Capsule.dr, 60 MG PO DAILY, #30 CAP 08/03/17 Metoprolol Tartrate* (Lopressor*) 25 Mg Tab, 25 MG PO DAILY, #60 TAB 08/03/17 Metformin Hcl* (Metformin Hcl*) 1,000 Mg Tablet, 1000 MG PO WITH BREAKFAST DINNE, #60 TAB 08/03/17 Clopidogrel Bisulfate* (Clopidogrel Bisulfate*) 75 Mg Tablet, 75 MG PO DAILY, #30 TAB 08/03/17 Tamsulosin Hcl* (Tamsulosin Hcl*) 0.4 Mg Cap.er.24h, 0.4 MG PO DAILY, CAP 08/03/17 Glimepiride* (Glimepiride*) 4 Mg Tablet, 4 MG PO WITH BREAKFAST DINNE, TAB 08/03/17 Famotidine* (Famotidine*) 20 Mg Tablet, 20 MG PO BID, #60 TAB 08/03/17 Lisinopril* (Lisinopril*) 5 Mg Tablet, 5 MG PO DAILY, #30 TAB 08/03/17 Follow-up Plan Cardiology in 1 week, primary care physician in 2 weeks Primary Care Provider Ángel Haile MD Time spent on discharge: > 30 minutes Pending Labs Laboratory Tests Test 04/22/18 12:40 04/22/18 13:41 04/22/18 17:41 04/22/18 18:34 Creatine 117 97 Kinase IU/L (23-200) IU/L (23-200) Creatine Kinase 1.2 1.4 Index Creatinine 1.46 1.39 Kinase MB ng/ml (0.0-2.4) ng/ml (0.0-2.4 (Mass) ) Troponin I 0.026 0.022 ng/ml (0.000-0. ng/ml (0.000-0 120) .120) Bedside 119 147 Glucose mg/dL (70-220) mg/dL (70-220) Test 04/22/18 21:11 04/23/18 02:48 04/23/18 05:59 04/23/18 08:52 Bedside 215 146 114 Glucose mg/dL (70-220) mg/dL (70-220) mg/dL (70-220) Hemoglobin A1c 8.9 % (0-5.9) Copies To: CC: ÁNGEL HAILE MD ; ALEXIS OBREGON MD Apr 23, 2018 10:53
--- NOTE | 2018-04-23 15:00 | CONS ---
Consult Date/Type/Reason Admit Date/Time Apr 22, 2018 at 05:54 Initial Consult Date 04/22/18 Requesting Provider: ALEXIS OBREGON MD Date/Time of Note DATE: 04/23/18 TIME: 14:58 Subjective Interventional cardiology follow-up progress note Subjective: Case discussed with the staff. Patient with no more chest pain or pressure. Wants to go home. Old records still not able to obtain. Denies any palpitation to me Objective: General: no acute distress HEENT: NC/AT. pupils are equal. round. NECK: NO JVD. no stridor. CV: RRR. systolic murmur; no gallop or rubs. PULM: no wheezing or rhonchi. GI: SOFT, NT, ND, no rebound or guarding Extremity: trace B/L LE edema. no clubbing. neuro: awake and alert, OX3. Psych: calm and pleasant rectal: deferred : normal EKG was personally showed normal sinus rhythm inferior infarct age undetermined Objective Vitals Vital Signs Date Temp Pulse Resp B/P (MAP) Pulse Ox O2 O2 Flow FiO2 Time Delivery Rate 04/23/18 68 12:00 04/23/18 98.2 16 102/68 95 11:25 (79) 04/22/18 Room Air 15:30 04/22/18 2.0 09:56 Intake and Output 04/22/18 04/22/18 04/23/18 1515:00 23:00 07:00 IntakeIntake Total 420 ml 800 ml 600 ml BalanceBalance 420 ml 800 ml 600 ml Results/Medications Result Diagram: 04/22/18 0449 04/22/18 0449 Results 24 hrs Laboratory Tests Test 04/22/18 17:41 04/22/18 18:34 04/22/18 21:11 04/23/18 02:48 Bedside Glucose 147 215 146 Creatine Kinase 97 Creatine Kinase 1.4 Index Creatinine Kinase MB 1.39 (Mass) Troponin I 0.022 Test 04/23/18 05:59 04/23/18 08:52 04/23/18 12:07 Hemoglobin A1c 8.9 H Bedside Glucose 114 174 Home Meds Reported Medications Pantoprazole* (Pantoprazole*) 40 Mg Tablet., 40 MG PO DAILY for 30 Days, #30 04/22/18 Icosapent Ethyl (VASCEPA) 1 Gm Capsule, 1 GM PO for 30 Days, #120 04/22/18 Ticagrelor* (Brilinta*) 90 Mg Tablet, 90 MG PO for 30 Days, #60 04/22/18 Nitroglycerin* (Nitroglycerin* SL) 0.4 Mg Tab.subl, 0.4 MG SL for 90 Days, #100 04/22/18 Exenatide Microspheres (Bydureon) 2 Mg Vial, 2 MG SQ Q7D, VIAL 08/03/17 Aspirin* (Aspirin* EC) 81 Mg Tablet.dr, 81 MG PO DAILY, TAB 08/03/17 Insulin Aspart* (Novolog Insulin Pen*) 100 Unit/Ml Soln, 0 SC .SLIDING SCALE AC, EA INJECT 6-10 UNITS BID 08/03/17 Insulin Degludec (Tresiba Flextouch U-200) 200 Unit/1 Ml Insuln.pen, 0 SQ QHS INJECT 40 OR 50 UNITS 08/03/17 Evolocumab (Repatha Sureclick) 140 Mg/1 Ml Pen.injctr, 140 MG SQ Q 14D 08/03/17 Trazodone Hcl* (Trazodone Hcl*) 150 Mg Tablet, 150 MG PO QHS, #30 TAB 08/03/17 Duloxetine Hcl* (Duloxetine Hcl*) 60 Mg Capsule.dr, 60 MG PO DAILY, #30 CAP 08/03/17 Metoprolol Tartrate* (Lopressor*) 25 Mg Tab, 25 MG PO DAILY, #60 TAB 08/03/17 Metformin Hcl* (Metformin Hcl*) 1,000 Mg Tablet, 1000 MG PO WITH BREAKFAST DINNE, #60 TAB 08/03/17 Clopidogrel Bisulfate* (Clopidogrel Bisulfate*) 75 Mg Tablet, 75 MG PO DAILY, #30 TAB 08/03/17 Tamsulosin Hcl* (Tamsulosin Hcl*) 0.4 Mg Cap.er.24h, 0.4 MG PO DAILY, CAP 08/03/17 Glimepiride* (Glimepiride*) 4 Mg Tablet, 4 MG PO WITH BREAKFAST DINNE, TAB 08/03/17 Famotidine* (Famotidine*) 20 Mg Tablet, 20 MG PO BID, #60 TAB 08/03/17 Lisinopril* (Lisinopril*) 5 Mg Tablet, 5 MG PO DAILY, #30 TAB 08/03/17 Medications Current Medications Dextrose/Sodium Chloride 1,000 ml @ 70 mls/hr [id number] IV Last administered on 04/22/18at 22:00; Admin Dose 70 MLS/HR; Start 04/22/18 at 05:58 IV Flush (NS 3 ml) 3 ml PER PROTOCOL IV ; Start 04/22/18 at 06:00 Ondansetron HCl (Zofran Inj) 4 mg Q6H PRN IV NAUSEA/VOMITING; Start 04/22/18 at 06:00 Nitroglycerin (Nitroglycerin (Sl Tab) 0.4 Mg) 1 tab Q5M PRN SL .CHEST PAIN; Start 04/22/18 at 06:00 Acetaminophen (Tylenol Tab) 650 mg Q6H PRN PO .PAIN 1-3 OR TEMP; Start 04/22/18 at 06:00 Acetaminophen/ Hydrocodone Bitart ([place] (5/325)) 1 tab Q6H PRN PO .PAIN 4-6; Start 04/22/18 at 06:00 Morphine Sulfate (morphine) 2 mg Q4H PRN IV .PAIN 7-10; Start 04/22/18 at 06:00 Duloxetine HCl (Cymbalta) 60 mg DAILY PO Last administered on 04/23/18at 08:54; Admin Dose 60 MG; Start 04/22/18 at 09:00 Lisinopril (Zestril) 5 mg DAILY PO Last administered on 04/22/18at 10:20; Admin Dose 5 MG; Start 04/22/18 at 09:00 Pantoprazole (Protonix Tab) 40 mg DAILY PO Last administered on 04/23/18at 08:53; Admin Dose 40 MG; Start 04/22/18 at 09:00 Ticagrelor (Brilinta) 90 mg BID PO Last administered on 04/23/18at 09:00; Admin Dose 90 MG; Start 04/22/18 at 09:00 Aspirin (Aspirin) 81 mg DAILY PO Last administered on 04/23/18at 08:53; Admin Dose 81 MG; Start 04/23/18 at 09:00 Metoprolol Tartrate (Lopressor) 25 mg BID PO Last administered on 04/22/18at 21:15; Admin Dose 25 MG; Start 04/22/18 at 09:00 Famotidine (Pepcid) 20 mg BID PO Last administered on 04/23/18 09:02; Admin Dose 20 MG; Start 04/22/18 at 09:00 Metformin HCl (Glucophage) 1,000 mg WITH BREAKFAST DINNE PO Last administered on 04/23/18 08:57; Admin Dose 1,000 MG; Start 04/22/18 at 17:55 Tamsulosin HCl (Flomax) 0.4 mg DAILY@2100 PO Last administered on 04/22/18 21:14; Admin Dose 0.4 MG; Start 04/22/18 at 21:00 Trazodone HCl (Desyrel) 150 mg QHS PO Last administered on 04/22/18 21:15; Admin Dose 150 MG; Start 04/22/18 at 21:00 Miscellaneous Information 2 mg Q7D SQ ; Start 04/22/18 at 08:30; Status UNV Fish Oil (Fish Oil) 2,000 mg BID PO Last administered on 04/23/18 08:53; Admin Dose 2,000 MG; Start 04/22/18 at 09:00 Finasteride (Proscar) 5 mg QAM PO Last administered on 04/23/18 08:53; Admin Dose 5 MG; Start 04/22/18 at 09:00 Diagnostic Test (Pha) (Accu-Chek) 1 ea 02 XX Last administered on 04/23/18 02:00; Admin Dose 1 EA; Start 04/23/18 at 02:00 Diagnostic Test (Pha) (Accu-Chek) 1 ea 2 HOURS AFTER MEALS XX Last administered on 04/22/18 19:55; Admin Dose 1 EA; Start 04/22/18 at 10:00 Insulin Glargine (Lantus) 25 units DAILY@2000 SC Last administered on 04/22/18 21:29; Admin Dose 25 UNITS; Start 04/22/18 at 20:00 Insulin Aspart (Novolog Insulin Pen) NOVOLOG *MODERATE* ALGORITHM WITH MEALS BEDTIME SC Last administered on 04/23/18 12:15; Admin Dose 2 UNIT; Start 04/22/18 at 09:30 Empaglifozin (Jardiance) 10 mg DAILY@08 PO Last administered on 04/23/18 08:54; Admin Dose 10 MG; Start 04/23/18 at 08:00 Diagnostic Test (Pha) (Accu-Chek) 1 ea AC MEALS AND BEDTIME XX Last adm inistered on 04/22/18at 17:42; Admin Dose 1 EA; Start 04/22/18 at 11:30 Miscellaneous Information 1 ea NOTE XX ; Start 04/22/18 at 10:00 Glucose (Glutose) 15 gm Q15M PRN PO DECREASED GLUCOSE; Start 04/22/18 at 10:00 Glucose (Glutose) 22.5 gm Q15M PRN PO DECREASED GLUCOSE; Start 04/22/18 at 10:00 Dextrose (D50w Syringe) 25 ml Q15M PRN IV DECREASED GLUCOSE; Start 04/22/18 at 10:00 Dextrose (D50w Syringe) 50 ml Q15M PRN IV DECREASED GLUCOSE; Start 04/22/18 at 10:00 Glucagon (Glucagen) 1 mg Q15M PRN IM DECREASED GLUCOSE; Start 04/22/18 at 10:00 Glucose (Glutose) 15 gm Q15M PRN BUCCAL DECREASED GLUCOSE; Start 04/22/18 at 10:00 Assessment/Plan Hospital Course (Demo Recall) 1. Chest pain appears to be nonanginal clinically: Myocardial infarction has been ruled out 2. Coronary artery disease 3. History of recent PCI 4. History of coronary bypass graft 5. Diabetes 6. Ischemic cardiomyopathy 7. History of hypertension 8. History of dyslipidemia on PCS canine inhibitors at home Recommendations: Continue with aspirin and Brilinta. Importance of compliant with Brilinta were discussed with the patient given the fact that he has reported who have had PCI/stent done few days ago No evidence of ST elevation OR with stent thrombosis of the EKG is noted. We will try to review the recent angiogram report. DC planning if patient does not have any significant other obstructive coronary artery that needs to be intervened on Continue with the beta-gaurav. Is not on a statin but is already on PCS K9 inhibitor at home Continue KARI inhibitor as tolerated. Diabetic management as per internal medicine. 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 Thank you for his referral. We will continue to follow along with you DIVINA YAN MD [facility] DIVINA YAN MD Apr 23, 2018 15:00
[2018-04-23] MEDS: DEXTROSE 5%-0.45% NACL 1,000 ML IV SCH (17:36)
[2018-04-23] MEDS: traZODone 50 MG TAB PO SCH (20:59)
[2018-04-23] MEDS: TAMSULOSIN (SR) 0.4 MG CAP PO SCH (21:00)
[2018-04-23] MEDS: INSULIN GLARGINE [LANTus] (100 UNITS/ML) SYG SC SCH (21:05)
[2018-04-24] VITALS (7 sets, daily range): BP systolic 107–111; BP diastolic 56–64; PULSE 70–82; RESP 17–19
[2018-04-24] MEDS: DEXTROSE 5%-0.45% NACL 1,000 ML IV SCH (00:52)
[2018-04-24] MEDS: ACCU-CHEK XX SCH ×4 (00:55→11:20)
--- NOTE | 2018-04-24 07:44 | CONS ---
Assessment/Plan Assessment/Plan Assessment/Plan (Daily) 1. Chest pain appears to be nonanginal clinically: Myocardial infarction has been ruled out 2. Coronary artery disease 3. History of recent PCI 4. History of coronary bypass graft 5. Diabetes 6. Ischemic cardiomyopathy 7. History of hypertension 8. History of dyslipidemia on PCSK9 inhibitors at home Recommendations: Continue with aspirin and Brilinta. Importance of compliant with Brilinta were discussed with the patient given the fact that he has reported who have had PCI/stent done few days ago No evidence of ST elevation ME with stent thrombosis of the EKG is noted. DC planning if patient does not have any significant other obstructive coronary artery that needs to be intervened on Continue with the beta-gaurav. Is not on a statin but is already on PCS K9 inhibitor at home Continue KARI inhibitor as tolerated. Diabetic management as per internal medicine. 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 Consultation Date/Type/Reason Admit Date/Time Apr 22, 2018 at 05:54 Initial Consult Date 04/22/18 Type of Consult Cardiology Requesting Provider: ALEXIS OBREGON MD Date/Time of Note DATE: 04/24/18 TIME: 07:43 24 HR Interval Summary Free Text/Dictation the patient with no symptoms overnight Exam/Review of Systems Vital Signs Vitals Vital Signs Date Temp Pulse Resp B/P (MAP) Pulse Ox O2 O2 Flow FiO2 Time Delivery Rate 04/24/18 98.2 81 19 107/56 97 07:23 (73) 04/22/18 Room Air 15:30 04/22/18 2.0 09:56 Intake and Output 04/23/18 04/23/18 04/24/18 1515:00 23:00 07:00 IntakeIntake Total 1140 ml 1120 ml BalanceBalance 1140 ml 1120 ml Labs Result Diagram: 04/22/18 0449 04/22/18 0449 Results 24hrs Laboratory Tests Test 04/23/18 08:52 04/23/18 12:07 04/23/18 17:32 04/23/18 20:58 Bedside Glucose 114 174 87 169 Medications Medications Current Medications Dextrose/Sodium Chloride 1,000 ml @ 70 mls/hr [id number] IV Last administered on 04/23/18at 17:36; Admin Dose 70 MLS/HR; Start 04/22/18 at 05:58 IV Flush (NS 3 ml) 3 ml PER PROTOCOL IV ; Start 04/22/18 at 06:00 Ondansetron HCl (Zofran Inj) 4 mg Q6H PRN IV NAUSEA/VOMITING; Start 04/22/18 at 06:00 Nitroglycerin (Nitroglycerin (Sl Tab) 0.4 Mg) 1 tab Q5M PRN SL .CHEST PAIN; Start 04/22/18 at 06:00 Acetaminophen (Tylenol Tab) 650 mg Q6H PRN PO .PAIN 1-3 OR TEMP; Start 04/22/18 at 06:00 Acetaminophen/ Hydrocodone Bitart ([place] (5/325)) 1 tab Q6H PRN PO .PAIN 4-6; Start 04/22/18 at 06:00 Morphine Sulfate (morphine) 2 mg Q4H PRN IV .PAIN 7-10; Start 04/22/18 at 06:00 Duloxetine HCl (Cymbalta) 60 mg DAILY PO Last administered on 04/23/18at 08:54; Admin Dose 60 MG; Start 04/22/18 at 09:00 Lisinopril (Zestril) 5 mg DAILY PO Last administered on 04/22/18at 10:20; Admin Dose 5 MG; Start 04/22/18 at 09:00 Pantoprazole (Protonix Tab) 40 mg DAILY PO Last administered on 04/23/18at 08: 53; Admin Dose 40 MG; Start 04/22/18 at 09:00 Ticagrelor (Brilinta) 90 mg BID PO Last administered on 04/23/18at 21:05; Admin Dose 90 MG; Start 04/22/18 at 09:00 Aspirin (Aspirin) 81 mg DAILY PO Last administered on 04/23/18at 08:53; Admin Dose 81 MG; Start 04/23/18 at 09:00 Metoprolol Tartrate (Lopressor) 25 mg BID PO Last administered on 04/23/18at 21:01; Admin Dose 25 MG; Start 04/22/18 at 09:00 Famotidine (Pepcid) 20 mg BID PO Last administered on 04/23/18at 21:06; Admin Dose 20 MG; Start 04/22/18 at 09:00 Metformin HCl (Glucophage) 1,000 mg WITH BREAKFAST DINNE PO Last administered on 04/23/18 17:33; Admin Dose 1,000 MG; Start 04/22/18 at 17:55 Tamsulosin HCl (Flomax) 0.4 mg DAILY@2100 PO Last administered on 04/23/18 21:00; Admin Dose 0.4 MG; Start 04/22/18 at 21:00 Trazodone HCl (Desyrel) 150 mg QHS PO Last administered on 04/23/18 20:59; Admin Dose 150 MG; Start 04/22/18 at 21:00 Miscellaneous Information 2 mg Q7D SQ ; Start 04/22/18 at 08:30; Status UNV Fish Oil (Fish Oil) 2,000 mg BID PO Last administered on 04/23/18 20:59; Admin Dose 2,000 MG; Start 04/22/18 at 09:00 Finasteride (Proscar) 5 mg QAM PO Last administered on 04/23/18 08:53; Admin Dose 5 MG; Start 04/22/18 at 09:00 Diagnostic Test (Pha) (Accu-Chek) 1 ea 02 XX Last administered on 04/23/18 02:00; Admin Dose 1 EA; Start 04/23/18 at 02:00 Diagnostic Test (Pha) (Accu-Chek) 1 ea 2 HOURS AFTER MEALS XX Last administered on 04/23/18 19:55; Admin Dose 1 EA; Start 04/22/18 at 10:00 Insulin Glargine (Lantus) 25 units DAILY@2000 SC Last administered on 04/23/18 21:05; Admin Dose 25 UNITS; Start 04/22/18 at 20:00 Insulin Aspart (Novolog Insulin Pen) NOVOLOG *MODERATE* ALGORITHM WITH MEALS BE DTIME SC Last administered on 04/23/18 12:15; Admin Dose 2 UNIT; Start 04/22/18 at 09:30 Empaglifozin (Jardiance) 10 mg DAILY@08 PO Last administered on 04/23/18 08:54; Admin Dose 10 MG; Start 04/23/18 at 08:00 Diagnostic Test (Pha) (Accu-Chek) 1 ea AC MEALS AND BEDTIME XX Last administered on 04/23/18 21:02; Admin Dose 1 EA; Start 04/22/18 at 11:30 Miscellaneous Information 1 ea NOTE XX ; Start 04/22/18 at 10:00 Glucose (Glutose) 15 gm Q15M PRN PO DECREASED GLUCOSE; Start 04/22/18 at 10:00 Glucose (Glutose) 22.5 gm Q15M PRN PO DECREASED GLUCOSE; Start 04/22/18 at 10:00 Dextrose (D50w Syringe) 25 ml Q15M PRN IV DECREASED GLUCOSE; Start 04/22/18 at 10:00 Dextrose (D50w Syringe) 50 ml Q15M PRN IV DECREASED GLUCOSE; Start 04/22/18 at 10:00 Glucagon (Glucagen) 1 mg Q15M PRN IM DECREASED GLUCOSE; Start 04/22/18 at 10:00 Glucose (Glutose) 15 gm Q15M PRN BUCCAL DECREASED GLUCOSE; Start 04/22/18 at 10:00 MIRZA SHI MD Apr 24, 2018 07:44
[2018-04-24] MEDS: INSULIN ASPART [NOVOLOG] 3 ML PEN SC SCH (07:55)
[2018-04-24] MEDS: EMPAGLIFLOZIN 10 MG TABLET PO SCH (08:15)
[2018-04-24] MEDS: metFORMIN 500 MG TAB PO SCH (08:54)
[2018-04-24] MEDS: DULOXETINE 30 MG CAP DR PO SCH (09:25)
[2018-04-24] MEDS: ASPIRIN 81 MG TAB PO SCH (09:25)
[2018-04-24] MEDS: PANTOPRAZOLE (EC) 40 MG TAB PO SCH (09:25)
[2018-04-24] MEDS: FINASTERIDE 5 MG TAB PO SCH (09:25)
[2018-04-24] MEDS: FISH OIL 1,000 MG CAP PO SCH (09:26)
[2018-04-24] MEDS: METOPROLOL 25 MG TAB PO SCH (09:26)
[2018-04-24] MEDS: LISINOPRIL 5 MG TAB PO SCH (09:27)
[2018-04-24] MEDS: TICAGRELOR 90 MG TABLET PO SCH (09:30)
--- NOTE | 2018-04-24 11:16 | DS ---
Date/Time of Note Date/Time of Note DATE: 04/24/18 TIME: 11:03 Discharge Summary Admission/Discharge Info Admit Date/Time Apr 22, 2018 at 05:54 Discharge Date/Time Discharge Diagnosis 1. Chest pain, noncardiac, resolved 2. Coronary artery disease, s/p CABG, recent PCI/stent on 04/20/2018, emphasized importance of compliance with medications, especially brinlinta 3. Diabetes mellitus, stable, follow up with PCP 4. Ischemic cardiomyopathy, CHF, systolic, chronic, stable 7. Hypertension, controlled 8. Dyslipidemia on PCSK9 inhibitors at home Patient Condition: Stable Hospital Course 57-year-old [place] gentleman had PCI and stenting performed on April 20, 2018. 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 Patient presented with epigastric pain that started 4 hours prior to arrival. He describes it as pressure-like, aching, radiating to his back, with associated chills, nausea, and nonbloody vomiting. Symptoms improved after admission. Troponin is negative, ECG unremarkable. Epigastric pain is not considered cardiac, and it resolved. Importance of complicance with medications is repeatedly discussed with the patient especially the importance of brilinta. He will follow up with cardiology and PCP closely as outpatient. Home Meds Reported Medications Pantoprazole* (Pantoprazole*) 40 Mg Tablet.dr, 40 MG PO DAILY for 30 Days, #30 04/22/18 Icosapent Ethyl (VASCEPA) 1 Gm Capsule, 1 GM PO for 30 Days, #120 04/22/18 Ticagrelor* (Brilinta*) 90 Mg Tablet, 90 MG PO for 30 Days, #60 04/22/18 Nitroglycerin* (Nitroglycerin* SL) 0.4 Mg Tab.subl, 0.4 MG SL for 90 Days, #100 04/22/18 Exenatide Microspheres (Bydureon) 2 Mg Vial, 2 MG SQ Q7D, VIAL 08/03/17 Aspirin* (Aspirin* EC) 81 Mg Tablet.dr, 81 MG PO DAILY, TAB 08/03/17 Insulin Aspart* (Novolog Insulin Pen*) 100 Unit/Ml Soln, 0 SC .SLIDING SCALE AC, EA INJECT 6-10 UNITS BID 08/03/17 Insulin Degludec (Tresiba Flextouch U-200) 200 Unit/1 Ml Insuln.pen, 0 SQ QHS INJECT 40 OR 50 UNITS 08/03/17 Evolocumab (Repatha Sureclick) 140 Mg/1 Ml Pen.injctr, 140 MG SQ Q 14D 08/03/17 Trazodone Hcl* (Trazodone Hcl*) 150 Mg Tablet, 150 MG PO QHS, #30 TAB 08/03/17 Duloxetine Hcl* (Duloxetine Hcl*) 60 Mg Capsule.dr, 60 MG PO DAILY, #30 CAP 08/03/17 Metoprolol Tartrate* (Lopressor*) 25 Mg Tab, 25 MG PO DAILY, #60 TAB 08/03/17 Metformin Hcl* (Metformin Hcl*) 1,000 Mg Tablet, 1000 MG PO WITH BREAKFAST DINNE, #60 TAB 08/03/17 Tamsulosin Hcl* (Tamsulosin Hcl*) 0.4 Mg Cap.er.24h, 0.4 MG PO DAILY, CAP 08/03/17 Glimepiride* (Glimepiride*) 4 Mg Tablet, 4 MG PO WITH BREAKFAST DINNE, TAB 08/03/17 Famotidine* (Famotidine*) 20 Mg Tablet, 20 MG PO BID, #60 TAB 08/03/17 Lisinopril* (Lisinopril*) 5 Mg Tablet, 5 MG PO DAILY, #30 TAB 08/03/17 Discontinued Reported Medications Clopidogrel Bisulfate* (Clopidogrel Bisulfate*) 75 Mg Tablet, 75 MG PO DAILY, #30 TAB 08/03/17 Follow-up Plan Cardiology in 1 week, primary care physician in 2 weeks Primary Care Provider Kian Haile MD Pending Labs Laboratory Tests Test 04/23/18 12:07 04/23/18 17:32 04/23/18 20:58 04/24/18 08:06 Bedside 174 87 169 98 Glucose mg/dL (70-220) mg/dL (70-220) mg/dL (70-220) mg/dL (70-220) CHERYLE TURNER MD Apr 24, 2018 11:15
[2018-04-24] MEDS: FAMOTIDINE 20 MG TAB PO SCH (14:07)
[2018-04-24] MEDS ORDERED: EXENATIDE MICROSPHERES 2 MG XX SCH (14:30)
[2018-04-24] MEDS ORDERED: [UNRECOGNIZED DRUG - OTHER] XX SCH (14:30)
--- NOTE | 2018-04-25 07:45 | RADRPT ---
Echocardiogram Report Patient Name: TRISTAN MEDELLINPatient ID: [id number] : 1960 (57y 7m)Study Date: 04/24/2018 8:24:08 AM Gender: MAccession #: [id number] Tech: LE Location: Ref.Physician: KENDALL SON Height(Cm): BSA: Weight(Kg): Quality: GoodAccount #: Procedures: Echocardiographic Report: Transthoracic echocardiogram with complete 2D, M-Mode, and doppler examination. Indications: Atrial Fibrillation. Measurements: 2D/M Mode Doppler Measurement Value Normal Range Measurement Value Normal Range LVIDd 2D 4.4 [ 4.2 - 5.8 ] cm TARIQ Vmax 2.0 [ 2.0 - 4.0 ] cm2 LVIDs 2D 3.6 [ 2.5 - 4.0 ] cm AV Mean Charles 0.9 [ 70.0 - 90.0 ] cm/sec LVPWd 2D 1.1 [ 0.6 - 1.0 ] cm AV Mean PG 4.0 [ 2.0 - 4.0 ] mmHg IVSd 2D 1.1 [ 0.6 - 1.0 ] cm AV Peak Charles 1.2 [ 100.0 - 170.0 ] cm/sec IVS/LVPW 2D 1.1 ratio AV Peak PG 5.0 [ 2.0 - 9.0 ] mmHg LVOT Diam 2.0 [ 2.3 - 2.9 ] cm AV VTI 21.7 cm LVOT Area 3.1 cm2 LVOT Peak Charles 0.8 [ 70.0 - 110.0 ] cm/sec LVOT Peak PG 2.0 [ 2.0 - 6.0 ] mmHg MV E Peak Charles 0.6 [ 60.0 - 130.0 ] cm/sec MV A Peak Charles 0.7 [ 100.0 - 120.0 ] cm/sec MV E/A 0.9 [ 0.8 - 1.5 ] ratio MV Decel Time 208 [ 104 - 258 ] msec Lat E` Charles 0.1 [ 10.0 - 15.0 ] cm/sec Med E` Charles 0.0 cm/sec MV E/A 0.9 [ 0.8 - 1.5 ] ratio PV Peak Charles 0.8 [ 40.0 - 80.0 ] cm/sec PV Peak PG 2.0 mmHg Findings: Left Ventricle: Lower limits of normal systolic function. Ejection fraction is visually estimated at 45-50 %. Tissue Doppler/Mitral Doppler indices are consistent with impaired relaxation (Stage I diastolic dysfunction). Multiple segmental wall motion abnormalities. These segments of the LV are hypokinetic inferior base segment and inferior mid segment. Right Ventricle: Normal right ventricular size. Normal right ventricular systolic function. Left Atrium: The left atrium is normal in size. Right Atrium: The right atrium is normal in size. Atrial Septum: Normal atrial septum. Mitral Valve: Normal appearance of the mitral valve. Trace mitral regurgitation. Aortic Valve: Normal appearance of the aortic valve. No significant aortic stenosis or insufficiency. Trace aortic valve regurgitation. Tricuspid Valve: Normal appearance of the tricuspid valve. Unable to obtain RVSP due to minimal presence of tricuspid regurgitation. There is trace tricuspid regurgitation. Pulmonic Valve: Normal pulmonic valve appearance. There is trace pulmonic regurgitation. Pericardium: Normal pericardium with no significant pericardial effusion. No pleural effusion noted. Aorta: Normal aortic root. IVC: The IVC is not well visualized. Pulmonary Artery: Normal pulmonary artery size. Conclusions: Lower limits of normal systolic function. Ejection fraction is visually estimated at 45-50 %. Tissue Doppler/Mitral Doppler indices are consistent with impaired relaxation (Stage I diastolic dysfunction). Multiple segmental wall motion abnormalities. These segments of the LV are hypokinetic inferior base segment and inferior mid segment. Normal appearance of the mitral valve. Trace mitral regurgitation. Normal appearance of the aortic valve. No significant aortic stenosis or insufficiency. Trace aortic valve regurgitation. Normal appearance of the tricuspid valve. Unable to obtain RVSP due to minimal presence of tricuspid regurgitation. There is trace tricuspid regurgitation. Electronically Signed By: Javi Forbes 2018-04-25 07:44:41 PST
== END 2018-04-24 16:03 | disposition home or self-care (01) ==
LOC: E/R 03:53 → TEL 05:54
PROVIDERS: ADMIT Internal Medicine; ATTEND Internal Medicine
DX: R07.89 Other chest pain (principal); I25.10 Atherosclerotic heart disease of native coronary artery without angina pectoris; Z95.1 Presence of aortocoronary bypass graft; Z95.5 Presence of coronary angioplasty implant and graft; I11.0 Hypertensive heart disease with heart failure; I50.22 Chronic systolic (congestive) heart failure; E11.9 Type 2 diabetes mellitus without complications; Z79.4 Long term (current) use of insulin; I25.5 Ischemic cardiomyopathy; E78.2 Mixed hyperlipidemia
CPT/HCPCS: 36415; 71045; 80048; 82550; 82553; 82962; 83036; 84484; 85025; 93005; 93306; 96374; 99285; G0378; J1815; J2405; J7042

== ENCOUNTER 2018-04-27 23:54 | Observation (INO) | payer MEDICARE, OTHER ==
[~2018-04-27] VITALS: Ht 175.3 cm; Wt 85.4 kg
[~2018-04-27 23:54] MED LIST changes: -CLOP75TA19 PO; +ICOS1CAP PO; +NITR0.4T32 SL; +PANT40TA4 PO; +TICA90TA PO
[2018-04-28] VITALS (8 sets, daily range): BP systolic 99–126; BP diastolic 62–76; PULSE 72–95; RESP 18–20; Ht 175.3 cm; Wt 85.4 kg
[2018-04-28] MEDS ORDERED: ONDANSETRON 4 MG INJ IV STA (00:01)
[2018-04-28] MEDS ORDERED: NITROGLYCERIN 2% 1 GM OINT PKT TD STA (00:01)
[2018-04-28] MEDS ORDERED: morphine 4 MG/ML VIAL IV STA (00:01)
--- NOTE | 2018-04-28 01:22 | ERD ---
ER Documentation Chief Complaint Chief Complaint BIB RA100 for CP HPI 57-year-old gentleman history of CABG, recent stent 1 week ago at [facility] who presents with chest pain. He describes it is substernal, pressure-like, consistent with anginal equivalent. Aspirin and nitro given prior to arrival. Patient was recently hospitalized and discharged 4 days ago for similar. No fevers chills cough or pleuritic pain. ROS All systems reviewed and are negative except as per history of present illness. Medications Home Meds Reported Medications Pantoprazole* (Pantoprazole*) 40 Mg Tablet.dr, 40 MG PO DAILY for 30 Days, #30 04/22/18 Icosapent Ethyl (VASCEPA) 1 Gm Capsule, 1 GM PO for 30 Days, #120 04/22/18 Ticagrelor* (Brilinta*) 90 Mg Tablet, 90 MG PO for 30 Days, #60 04/22/18 Nitroglycerin* (Nitroglycerin* SL) 0.4 Mg Tab.subl, 0.4 MG SL for 90 Days, #100 04/22/18 Exenatide Microspheres (Bydureon) 2 Mg Vial, 2 MG SQ Q7D, VIAL 08/03/17 Aspirin* (Aspirin* EC) 81 Mg Tablet.dr, 81 MG PO DAILY, TAB 08/03/17 Insulin Aspart* (Novolog Insulin Pen*) 100 Unit/Ml Soln, 0 SC .SLIDING SCALE AC, EA INJECT 6-10 UNITS BID 08/03/17 Insulin Degludec (Tresiba Flextouch U-200) 200 Unit/1 Ml Insuln.pen, 0 SQ QHS INJECT 40 OR 50 UNITS 08/03/17 Evolocumab (Repatha Sureclick) 140 Mg/1 Ml Pen.injctr, 140 MG SQ Q 14D 08/03/17 Trazodone Hcl* (Trazodone Hcl*) 150 Mg Tablet, 150 MG PO QHS, #30 TAB 08/03/17 Duloxetine Hcl* (Duloxetine Hcl*) 60 Mg Capsule.dr, 60 MG PO DAILY, #30 CAP 08/03/17 Metoprolol Tartrate* (Lopressor*) 25 Mg Tab, 25 MG PO DAILY, #60 TAB 08/03/17 Metformin Hcl* (Metformin Hcl*) 1,000 Mg Tablet, 1000 MG PO WITH BREAKFAST DINNE, #60 TAB 5/30/18 Tamsulosin Hcl* (Tamsulosin Hcl*) 0.4 Mg Cap.er.24h, 0.4 MG PO DAILY, CAP 08/03/17 Glimepiride* (Glimepiride*) 4 Mg Tablet, 4 MG PO WITH BREAKFAST DINNE, TAB 08/03/17 Famotidine* (Famotidine*) 20 Mg Tablet, 20 MG PO BID, #60 TAB 08/03/17 Lisinopril* (Lisinopril*) 5 Mg Tablet, 5 MG PO DAILY, #30 TAB 08/03/17 Discontinued Reported Medications Clopidogrel Bisulfate* (Clopidogrel Bisulfate*) 75 Mg Tablet, 75 MG PO DAILY, #30 TAB 08/03/17 Allergies Allergies: Coded Allergies: Lljpnqr-Shw-Joi Reductase Inhibitor (Verified Allergy, Intermediate, myalgias, 04/22/18) cat dander (Verified Allergy, Unknown, 04/22/18) cat pelt standardized allergenic ex (Unverified Allergy, Unknown, 04/22/18) PMhx/Soc History of Surgery: Yes (CARDIAC STENT PLACEMENT X4) Anesthesia Reaction: No Hx Neurological Disorder: No Hx Respiratory Disorders: No Hx Cardiac Disorders: Yes (HTN) Hx Psychiatric Problems: No Hx Miscellaneous Medical Probl: No Hx Substance Use: No Hx Tobacco Use: Yes (2 years ago) Smoking Status: Former smoker FmHx Family History: coronary disease; No diabetes Physical Exam Vitals Vital Signs Date Temp Pulse Resp B/P (MAP) Pulse Ox O2 O2 Flow FiO2 Time Delivery Rate 04/28/18 80 14 132/77 96 Room Air 01:18 (95) 04/28/18 98.1 78 16 136/82 99 00:01 (100) Physical Exam General: Well developed, well nourished, no acute distress Head: Normocephalic, atraumatic. Eyes: Pupils equally reactive, EOM intact ENT: Moist mucous membranes Neck: Supple, no lymphadenopathy Respiratory: Lungs clear bilaterally, no distress Cardiovascular: RRR, no murmurs, rubs, or gallops Abdominal: Soft, non-tender, non-distended, no peritoneal signs : Deferred MSK: No edema, no unilateral swelling, 5/5 strength Neurologic: Alert and oriented, moving all extremities, normal speech, no focal weakness, no cerebellar signs Skin: No rash Psych: Normal mood Result Diagram: 04/28/18 0016 04/28/18 0016 Results 24 hrs Laboratory Tests Test 04/28/18 00:16 White Blood Count 9.0 10^3/ul Red Blood Count 4.49 10^6/ul Hemoglobin 13.7 g/dl Hematocrit 39.5 % Mean Corpuscular Volume 88.0 fl Mean Corpuscular Hemoglobin 30.5 pg Mean Corpuscular Hemoglobin Concent 34.7 g/dl Red Cell Distribution Width 11.9 % Platelet Count 324 10^3/UL Mean Platelet Volume 10.0 fl Immature Granulocytes % 0.400 % Neutrophils % 59.4 % Lymphocytes % 30.6 % Monocytes % 6.9 % Eosinophils % 2.3 % Basophils % 0.4 % Nucleated Red Blood Cells % 0.0 /100WBC Immature Granulocytes # 0.040 10^3/ul Neutrophils # 5.3 10^3/ul Lymphocytes # 2.7 10^3/ul Monocytes # 0.6 10^3/ul Eosinophils # 0.2 10^3/ul Basophils # 0.0 10^3/ul Nucleated Red Blood Cells # 0.0 10^3/ul Sodium Level 139 mmol/L Potassium Level 4.0 mmol/L Chloride Level 103 mmol/L Carbon Dioxide Level 21 mmol/L Anion Gap 15 Blood Urea Nitrogen 21 mg/dl Creatinine 0.79 mg/dl Est Glomerular Filtrat Rate mL/min > 60 mL/min Glucose Level 159 mg/dl Calcium Level 9.7 mg/dl Troponin I < 0.012 ng/ml Current Medications Medications Dose Sig/Lucila Start Time Status Last (Trade) Ordered Route PRN Stop Time Admin Dose Reason Admin 1 inch ONCE STAT 04/28/18 DC 04/28/18 Nitroglycerin TD 00:01 00:24 04/28/18 00:03 (Nitroglyceri n 2% Oint) Morphine 4 mg ONCE STAT 04/28/18 DC 04/28/18 Sulfate IV 00:01 00:23 (morphine) 04/28/18 00:03 Ondansetron 4 mg ONCE STAT 04/28/18 DC 04/28/18 HCl (Zofran IV 00:01 00:23 Inj) 04/28/18 00:03 Ondansetron 4 mg ER BRIDGE 04/28/18 HCl (Zofran PRN IV 01:30 Inj) NAUSEA/VOMITI 04/29/18 01:29 NG 650 mg ER BRIDGE 04/28/18 Acetaminophen PRN PO 01:30 (Tylenol .MILD PAIN 04/29/18 01:29 Tab) 1-3 OR TEMP Procedures/MDM EKG, MONITORS, & DIAGNOSTIC IMAGING: EKG: I reviewed and interpreted a 12-lead EKG. Rhythm: Normal sinus rhythm ST Changes: No contiguous ST segment elevations T waves: No contiguous T wave inversions Impression: No evidence of acute cardiac ischemia Repeat EKG: EKG: I reviewed and interpreted a 12-lead EKG. Rhythm: Normal sinus rhythm ST Changes: No contiguous ST segment elevations T waves: No contiguous T wave inversions Impression: No evidence of acute cardiac ischemia Chest x-ray: I reviewed and interpreted a 1 view of the chest Mediastinum: No enlargement Cardiac silhouette: No cardiomegaly Airspace: Clear lung borges bilaterally without evidence of pneumothorax Bones: No evidence of fracture PROCEDURES: None LAB INTERPRETATION: Negative initial troponin MEDICAL DECISION MAKING: The patient's history, physical exam and clinical presentation is concerning for possible cardiogenic etiology and acute coronary syndrome. Based on the patient's clinical exam and history and risk factors, I have a much lower clinical concern for pulmonary embolism, acute aortic dissection, pneumothorax, pneumonia, cardiac tamponade HEART Score: Greater than 4 MACE Rate: 60.6% Shared Decision Making: We had a conversation regarding risk stratification, MACE rate, and the risks, benefits, alternatives of disposition planning opti ons. Disposition planning: Admission ER COURSE: * Aspirin, nitro, morphine provided * Chest pain-free * While the patient was recently admitted for chest pain the patient is extremely high risk. He has poor compliance with medication regimen and a stent within the last 14 days. The patient warrants hospitalization for serial enzymes CONSULTATION: None DISPOSITION PLAN: Telemetry admission for management of chest pain to rule out acute coronary syndrome, serial enzymes, risk stratification and consideration of provocative testing CONSULTATION: Accepting care team and consultations: I discussed the current laboratory data, diagnostic imaging and emergency care provided. Admitting team: Primary care physician Dr. Haile Admitting team indication: Insurance directed Departure Diagnosis: Primary Impression: Chest pain Chest pain type: unspecified Qualified Codes: R07.9 - Chest pain, unspecified Additional Impressions: 3-vessel coronary artery disease Status post primary angioplasty with coronary stent Condition: Stable LORAINE MAKI MD Apr 28, 2018 01:21
[2018-04-28] MEDS ORDERED: ONDANSETRON 4 MG INJ IV PRN (01:30)
[2018-04-28] MEDS ORDERED: ACETAMINOPHEN 325 MG TAB PO PRN (01:30)
[2018-04-28] MEDS ORDERED: NITROGLYCERIN (SL) 0.4 MG TAB SL PRN (04:00)
[2018-04-28] MEDS ORDERED: NON-FORMULARY/PATIENT OWN MED (Exenatide Microspheres (Bydureon) 2 MG) SQ SCH (04:00)
[2018-04-28] MEDS ORDERED: EVOLOCUMAB 140 MG SQ SCH (04:00)
[2018-04-28] MEDS ORDERED: LORAZEPAM 1 MG TAB PO PRN (04:00)
[2018-04-28] MEDS ORDERED: GLUCOSE GEL 15 GRAM TUBE PO PRN ×2 (04:30)
[2018-04-28] MEDS ORDERED: GLUCOSE GEL 15 GRAM TUBE BUCCAL PRN (04:30)
[2018-04-28] MEDS ORDERED: DEXTROSE 50% 50 ML SYRINGE IV PRN ×2 (04:30)
[2018-04-28] MEDS ORDERED: GLUCAGON 1 MG INJ IM PRN (04:30)
[2018-04-28] MEDS ORDERED: PANTOPRAZOLE (EC) 40 MG TAB PO SCH (06:00)
[2018-04-28] MEDS: ACCU-CHEK XX SCH ×3 (06:56→17:15)
[2018-04-28] MEDS ORDERED: ACCU-CHEK XX SCH ×2 (07:00)
[2018-04-28] MEDS: INSULIN ASPART [NOVOLOG] 3 ML PEN SC SCH ×3 (08:00→17:15)
[2018-04-28] MEDS: GLIMEPIRIDE 4 MG TAB PO SCH ×2 (08:40→17:15)
[2018-04-28] MEDS: metFORMIN 500 MG TAB PO SCH ×2 (08:40→17:15)
[2018-04-28] MEDS ORDERED: FAMOTIDINE 20 MG TAB PO SCH (09:00)
[2018-04-28] MEDS ORDERED: TICAGRELOR 90 MG TABLET PO SCH (09:00)
[2018-04-28] MEDS ORDERED: ASPIRIN (EC) 81 MG TAB PO SCH (09:00)
[2018-04-28] MEDS ORDERED: LISINOPRIL 5 MG TAB PO SCH (09:00)
[2018-04-28] MEDS ORDERED: TAMSULOSIN (SR) 0.4 MG CAP PO SCH (09:00)
[2018-04-28] MEDS ORDERED: METOPROLOL 25 MG TAB PO SCH (09:00)
[2018-04-28] MEDS ORDERED: DULOXETINE 30 MG CAP DR PO SCH (09:00)
--- NOTE | 2018-04-28 11:25 | HP ---
DATE OF ADMISSION: 04/28/2018 HISTORY OF PRESENT ILLNESS: A 57-year-old male was admitted through emergency room for acute chest p ain and discomfort over the chest. This is a patient who is a frequent flyer to the emergency room [facility] secondary to chest pain. He has past medical history of coronary artery disease statu s post CABG. One week ago, the patient was at [facility] again with chest pain and he went there where Dr. Forbes put a stent in him. On the second day, he again went to the emergency room wi chest pain. They evaluated him, ruled him out and sent him home and again the patient comes in wi the chest pain starting from the epigastric area with nausea, bloating and also chest pain accordi ng to him. No pressure and no acute pain. PAST MEDICAL HISTORY: As I mentioned of type 2 diabetes mellitus, uncontrolled. The patient has a h istory of alcohol abuse. The patient also has history of bipolar depression, anxiety, degenerative j oint disease, dyslipidemia, hypertension and benign prostatic hypertrophy. HOME MEDICATIONS: As follows: He is on: 1. Protonix 40 once a day. 2. Vascepa 1 gram twice a day. 3. Brilinta 90 mg once a day, which was just started after the stent. 4. Nitroglycerin on p.r.n. basis. 5. Bydureon 2 mg once a day. 6. Aspirin 81 once a day. 7. Repatha injections once every 2 weeks for his cholesterol. 8. Trazodone 150 mg at bedtime. 9. Duloxetine 60 mg once a day. 10. Metoprolol 25 twice a day. 11. Metformin 1000 twice a day. 12. Tamsulosin 0.4 mg daily. 13. Glimepiride 4 mg daily. 14. Lisinopril 5 mg daily. ALLERGIES: ACCORDING TO THE PATIENT, HE HAS ALLERGIES TO: 1. STATINS WITH SEVERE MYALGIA, ACHES AND PAINS. 2. CATS. PAST SURGICAL HISTORY: As I mentioned above, history of CABG and cardiac stent placements x4, bipola r disorder, diabetes mellitus insulin-dependent, tobacco use, alcohol use, degenerative joint disease and epigastric pain. FAMILY HISTORY: Has history of heart disease. No diabetes in the family. REVIEW OF SYSTEMS: The patient complains at this time of no chest pain, comfortable. Denies of any abdominal pain, nausea, vomiting. Denies of any hesitancy, urgency or pain during urination. Denies of any numbness or tingling one side more than the other. PHYSICAL EXAMINATION: VITAL SIGNS: The blood pressure is 90/70, heart rate 78, respiratory rate 18, afebrile. HEENT: Head is atraumatic, normocephalic. Pupils are equal and reactive to light. Extraocular musc les are intact. Nares are clear. No obstruction. No deviation of the septum. Oral cavity is joanne l, oral hygiene. Ear canals are clear. No signs of inflammation or infection. Tympanic membranes a re intact. NECK: Supple. No JVD, no surgical scars, no lymph nodes palpable over the neck. CHEST: AP contour within normal limits. He has no surgical scar over the chest wall, post-CABG. HEART: S1, S2. Regular rate and rhythm with cardiomegaly and systolic murmur over the apex. LUNGS: Clear to auscultation. No wheezes or crackles. No abnormalities over the lungs. ABDOMEN: Soft. Positive bowel sounds. No hepatosplenomegaly. No masses palpable over the abdomen and no rebound tenderness. EXTREMITIES: No edema, clubbing or cyanosis of the extremities. Positive pulses all over the extrem ities. LABORATORY RESULTS: CBC: Hemoglobin is 13.7, hematocrit 39.5, white count 9.0 and platelets 324. C hemistry: Sodium is 139, potassium 4.0, chloride is 103, BUN is 21, creatinine 0.79. First troponin is negative. DIAGNOSTIC DATA: Chest x-ray: No major abnormalities in the chest x-ray. EKG: No new changes. ADMITTING DIAGNOSES: 1. Chest pain, rule out ischemia. 2. Type 2 diabetes mellitus, uncontrolled. 3. Degenerative joint disease. 4. Epigastric pain, gastritis. 5. Bipolar depression. PLAN: He will receive serial cardiac enzymes. We will discuss with his follow up clerk and repeat EKG and if normal, possibly will be discharging after 24 hours. Dictated By: ÁNGEL COHEN MD SB/NTS Conf#: [id number] DID#: [id number] CC: MIRZA SHI MD;*EndCC*
[2018-04-28] MEDS ORDERED: METOCLOPRAMIDE 5 MG TAB PO SCH (12:07)
[2018-04-28] MEDS ORDERED: METO5TAB2 PO (15:05)
--- NOTE | 2018-04-28 15:10 | CONS ---
Assessment/Plan Assessment/Plan Hospital Course (Demo Recall) chest pain : nonanginal and appears GI related CAD HX CABG HX PCI HTN DM Dyslipidemai Recommendations: Continue with current cardiac care including aspirin and Brilinta. Beta-gaurav to be continued. His cardiac enzymes have been negative. There is no indication for doing a stress test which usually has a false positive result of right after the PCI. His EKG was also reviewed there is no evidence of ST elevation KS noted Okay to discharge from the cardiac standpoint. Patient has a follow-up appoint with his regular hash slinger on Tuesday Thank you for his referral. We will follow with you as needed basis DIVINA YAN MD [facility] Consultation Date/Type/Reason Admit Date/Time Apr 28, 2018 at 01:28 Date of Consultation: Apr 28, 2018 Type of Consult Cardiology Reason for Consultation chest pain Requesting Provider: ÁNGEL COHEN MD Date/Time of Note DATE: 04/28/18 TIME: 15:05 Hx of Present Illness Interventional cardiology consultation note Chief complaint: Chest pain Reason for consult: Chest pain History of present illness: Thank you for this referral. History was obtained from the patient who is a poor historian. From discussion with the staff and physician and from review of the old chart This is a pleasant 49-year-old Romansh gentleman with history of coronary artery disease status post three-vessel bypass surgery, who came to emergency room last night with complaint of chest pain. Patient stated 2 hours after he ate he started feeling bloated in his abdomen then he started having pain going from his abdomen to his chest. He got nervous and anxious presents check his blood pressure was elevated. He came to emergency room Patient had similar episode about a week ago at which time workup including cardiac enzymes were negative. Patient has just had a coronary angiogram and PCI done at [facility] about a week ago on 04/20 Patient currently chest pain-free Allergies: No known drug allergies Medications as per medical reconciliation reviewed personally reviewed Family history: Positive for coronary artery disease Social history: Has quit smoking Past medical history: Coronary artery disease status post KS status post multiple PCI's in the past status post coronary bypass graft hypertension dyslipidemia diabetes history of anxiety Review of system: Patient denies all others except for above-mentioned Past Medical History Home Meds Reported Medications Pantoprazole* (Pantoprazole*) 40 Mg Tablet., 40 MG PO DAILY for 30 Days, #30 04/22/18 Icosapent Ethyl (VASCEPA) 1 Gm Capsule, 1 GM PO for 30 Days, #120 04/22/18 Ticagrelor* (Brilinta*) 90 Mg Tablet, 90 MG PO for 30 Days, #60 04/22/18 Nitroglycerin* (Nitroglycerin* SL) 0.4 Mg Tab.subl, 0.4 MG SL for 90 Days, #100 04/22/18 Exenatide Microspheres (Bydureon) 2 Mg Vial, 2 MG SQ Q7D, VIAL 08/03/17 Aspirin* (Aspirin* EC) 81 Mg Tablet.dr, 81 MG PO DAILY, TAB 08/03/17 Insulin Aspart* (Novolog Insulin Pen*) 100 Unit/Ml Soln, 0 SC .SLIDING SCALE AC, EA INJECT 6-10 UNITS BID 08/03/17 Insulin Degludec (Tresiba Flextouch U-200) 200 Unit/1 Ml Insuln.pen, 0 SQ QHS INJECT 40 OR 50 UNITS 08/03/17 Evolocumab (Repatha Sureclick) 140 Mg/1 Ml Pen.injctr, 140 MG SQ Q 14D 08/03/17 Trazodone Hcl* (Trazodone Hcl*) 150 Mg Tablet, 150 MG PO QHS, #30 TAB 08/03/17 Duloxetine Hcl* (Duloxetine Hcl*) 60 Mg Capsule.dr, 60 MG PO DAILY, #30 CAP 08/03/17 Metoprolol Tartrate* (Lopressor*) 25 Mg Tab, 25 MG PO DAILY, #60 TAB 08/03/17 Metformin Hcl* (Metformin Hcl*) 1,000 Mg Tablet, 1000 MG PO WITH BREAKFAST DINNE, #60 TAB 08/03/17 Tamsulosin Hcl* (Tamsulosin Hcl*) 0.4 Mg Cap.er.24h, 0.4 MG PO DAILY, CAP 08/03/17 Glimepiride* (Glimepiride*) 4 Mg Tablet, 4 MG PO WITH BREAKFAST DINNE, TAB 08/03/17 Famotidine* (Famotidine*) 20 Mg Tablet, 20 MG PO BID, #60 TAB 08/03/17 Lisinopril* (Lisinopril*) 5 Mg Tablet, 5 MG PO DAILY, #30 TAB 5/30/18 Discontinued Reported Medications Clopidogrel Bisulfate* (Clopidogrel Bisulfate*) 75 Mg Tablet, 75 MG PO DAILY, #30 TAB 08/03/17 Medications Current Medications Ondansetron HCl (Zofran Inj) 4 mg ER BRIDGE PRN IV NAUSEA/VOMITING; Start 04/28/18 at 01:30; Stop 04/29/18 at 01:29 Acetaminophen (Tylenol Tab) 650 mg ER BRIDGE PRN PO .MILD PAIN 1-3 OR TEMP; Start 04/28/18 at 01:30; Stop 04/29/18 at 01:29 Aspirin (Halfprin) 81 mg DAILY PO Last administered on 04/28/18 08:38; Admin Dose 81 MG; Start 04/28/18 at 09:00 Duloxetine HCl (Cymbalta) 60 mg DAILY PO Last administered on 04/28/18 08:38; Admin Dose 60 MG; Start 04/28/18 at 09:00 Famotidine (Pepcid) 20 mg BID PO Last administered on 04/28/18 08:41; Admin Dose 20 MG; Start 04/28/18 at 09:00 Glimepiride (Amaryl) 4 mg WITH BREAKFAST DINNE PO Last administered on 04/28/18 08:40; Admin Dose 4 MG; Start 04/28/18 at 08:00 Lisinopril (Zestril) 5 mg DAILY PO Last administered on 04/28/18 08:41; Admin Dose 5 MG; Start 04/28/18 at 09:00 Metformin HCl (Glucophage) 1,000 mg WITH BREAKFAST DINNE PO Last administered on 04/28/18 08:40; Admin Dose 1,000 MG; Start 04/28/18 at 08:00 Metoprolol Tartrate (Lopressor) 25 mg DAILY PO Last administered on 04/28/18 08:41; Admin Dose 25 MG; Start 04/28/18 at 09:00 Nitroglycerin (Nitroglycerin (Sl Tab) 0.4 Mg) 1 tab PRN PRN SL CHEST PAIN; Start 04/28/18 at 04:00 Pantoprazole (Protonix Tab) 40 mg DAILY@0600 PO Last administered on 04/28/18at 05:16; Admin Dose 40 MG; Start 04/28/18 at 06:00 Tamsulosin HCl (Flomax) 0.4 mg DAILY PO Last administered on 04/28/18at 08:40; Admin Dose 0.4 MG; Start 04/28/18 at 09:00 Ticagrelor (Brilinta) 90 mg BID PO Last administered on 04/28/18at 08:52; Admin Dose 90 MG; Start 04/28/18 at 09:00 Miscellaneous Information 140 mg Q 14D SQ ; Start 04/28/18 at 04:00; Status UNV Miscellaneous Information 2 mg Q7D SQ ; Start 04/28/18 at 04:00; Status UNV Insulin Aspart (Novolog Insulin Pen) 4 unit WITH MEALS SC Last administered on 04/28/18at 12:52; Admin Dose 4 UNIT; Start 04/28/18 at 08:00 Diagnostic Test (Pha) (Accu-Chek) 1 ea AC MEALS AND BEDTIME XX Last admin istered on 04/28/18at 12:23; Admin Dose 1 EA; Start 04/28/18 at 07:00 Lorazepam (Ativan) 1 mg Q8 PRN PO AGITATION; Start 04/28/18 at 04:00 Miscellaneous Information 1 ea NOTE XX ; Start 04/28/18 at 04:30 Glucose (Glutose) 15 gm Q15M PRN PO DECREASED GLUCOSE; Start 04/28/18 at 04:30 Glucose (Glutose) 22.5 gm Q15M PRN PO DECREASED GLUCOSE; Start 04/28/18 at 04:30 Dextrose (D50w Syringe) 25 ml Q15M PRN IV DECREASED GLUCOSE; Start 04/28/18 at 04:30 Dextrose (D50w Syringe) 50 ml Q15M PRN IV DECREASED GLUCOSE; Start 04/28/18 at 04:30 Glucagon (Glucagen) 1 mg Q15M PRN IM DECREASED GLUCOSE; Start 04/28/18 at 04:30 Glucose (Glutose) 15 gm Q15M PRN BUCCAL DECREASED GLUCOSE; Start 04/28/18 at 04:30 Metoclopramide HCl (Reglan) 5 mg TID PO ; Start 04/28/18 at 12:07 Allergies: Coded Allergies: Bqdkfho-Lbu-Fby Reductase Inhibitor (Verified Allergy, Intermediate, kelly lgias, 04/22/18) cat dander (Verified Allergy, Unknown, 04/22/18) cat pelt standardized allergenic ex (Unverified Allergy, Unknown, 04/22/18) Past Surgical History Past Surgical Hx: no surgical history, angioplasty, coronary bypass surgery Social History Smoking Status: Former smoker Exam/Review of Systems Vital Signs Vitals Vital Signs Date Temp Pulse Resp B/P (MAP) Pulse Ox O2 O2 Flow FiO2 Time Delivery Rate 04/28/18 75 12:04 04/28/18 98.6 19 113/74 96 11:20 (87) 04/28/18 Room Air 03:06 Exam Exam General: no acute distress HEENT: NC/AT. pupils are equal. round. NECK: NO JVD. no stridor. CV: RRR. systolic murmur; no gallop or rubs. PULM: no wheezing or rhonchi. GI: SOFT, NT, ND, no rebound or guarding Extremity: trace B/L LE edema. no clubbing. neuro: awake and alert, OX3. Psych: Anxious but pleasant rectal: deferred : normal EKG was personally showed normal sinus rhythm with inferior infarct age undetermined Of the old charts obtained from [facility] shows that patient had a coronary angiogram done on 04/20/2018 which showed MERCADO to LAD was patent with good flow to the distal third of the LAD. Extremity had 80% stenosis this area was intervened on had a successful PCI done. Saphenous vein graft to OM1 and OM 2 is patent RC 800% occluded. Saphenous graft to RCA is also 100% occluded Labs Result Diagram: 04/28/18 0016 04/28/18 0016 Results 24hrs Laboratory Tests Test 04/28/18 00:16 04/28/18 05:08 04/28/18 06:54 04/28/18 08:23 White Blood Count 9.0 Red Blood Count 4.49 L Hemoglobin 13.7 L Hematocrit 39.5 L Mean Corpuscular 88.0 Volume Mean Corpuscular 30.5 Hemoglobin Mean Corpuscular 34.7 Hemoglobin Concent Red Cell 11.9 Distribution Width Platelet Count 324 # Mean Platelet Volume 10.0 Immature 0.400 Granulocytes % Neutrophils % 59.4 Lymphocytes % 30.6 Monocytes % 6.9 Eosinophils % 2.3 Basophils % 0.4 Nucleated Red Blood 0.0 Cells % Immature 0.040 H Granulocytes # Neutrophils # 5.3 Lymphocytes # 2.7 Monocytes # 0.6 Eosinophils # 0.2 Basophils # 0.0 Nucleated Red Blood 0.0 Cells # Sodium Level 139 Potassium Level 4.0 Chloride Level 103 Carbon Dioxide Level 21 Anion Gap 15 H Blood Urea Nitrogen 21 H Creatinine 0.79 Est Glomerular > 60 Filtrat Rate mL/min Glucose Level 159 Calcium Level 9.7 Troponin I < 0.012 < 0.012 Creatine Kinase 62 Creatine Kinase 2.8 Index Creatinine Kinase MB 1.71 (Mass) Bedside Glucose 130 122 Test 04/28/18 09:25 04/28/18 12:01 Creatine Kinase 56 Creatine Kinase 3.1 Index Creatinine Kinase MB 1.76 (Mass) Troponin I < 0.012 Bedside Glucose 159 Medications Medications Current Medications Ondansetron HCl (Zofran Inj) 4 mg ER BRIDGE PRN IV NAUSEA/VOMITING; Start 04/28/18 at 01:30; Stop 04/29/18 at 01:29 Acetaminophen (Tylenol Tab) 650 mg ER BRIDGE PRN PO .MILD PAIN 1-3 OR TEMP; Start 04/28/18 at 01:30; Stop 04/29/18 at 01:29 Aspirin (Halfprin) 81 mg DAILY PO Last administered on 04/28/18 08:38; Admin Dose 81 MG; Start 04/28/18 at 09:00 Duloxetine HCl (Cymbalta) 60 mg DAILY PO Last administered on 04/28/18at 08:38; Admin Dose 60 MG; Start 04/28/18 at 09:00 Famotidine (Pepcid) 20 mg BID PO Last administered on 04/28/18 08:41; Admin Dose 20 MG; Start 04/28/18 at 09:00 Glimepiride (Amaryl) 4 mg WITH BREAKFAST DINNE PO Last administered on 04/28/18 08:40; Admin Dose 4 MG; Start 04/28/18 at 08:00 Lisinopril (Zestril) 5 mg DAILY PO Last administered on 04/28/18 08:41; Admin Dose 5 MG; Start 04/28/18 at 09:00 Metformin HCl (Glucophage) 1,000 mg WITH BREAKFAST DINNE PO Last administered on 04/28/18 08:40; Admin Dose 1,000 MG; Start 04/28/18 at 08:00 Metoprolol Tartrate (Lopressor) 25 mg DAILY PO Last administered on 04/28/18at 08:41; Admin Dose 25 MG; Start 04/28/18 at 09:00 Nitroglycerin (Nitroglycerin (Sl Tab) 0.4 Mg) 1 tab PRN PRN SL CHEST PAIN; Start 04/28/18 at 04:00 Pantoprazole (Protonix Tab) 40 mg DAILY@0600 PO Last administered on 04/28/18at 05:16; Admin Dose 40 MG; Start 04/28/18 at 06:00 Tamsulosin HCl (Flomax) 0.4 mg DAILY PO Last administered on 04/28/18at 08:40; Admin Dose 0.4 MG; Start 04/28/18 at 09:00 Ticagrelor (Brilinta) 90 mg BID PO Last administered on 04/28/18at 08:52; Admin Dose 90 MG; Start 04/28/18 at 09:00 Miscellaneous Information 140 mg Q 14D SQ ; Start 04/28/18 at 04:00; Status UNV Miscellaneous Information 2 mg Q7D SQ ; Start 04/28/18 at 04:00; Status UNV Insulin Aspart (Novolog Insulin Pen) 4 unit WITH MEALS SC Last administered on 04/28/18at 12:52; Admin Dose 4 UNIT; Start 04/28/18 at 08:00 Diagnostic Test (Pha) (Accu-Chek) 1 ea AC MEALS AND BEDTIME XX Last administered on 04/28/18at 12:23; Admin Dose 1 EA; Start 04/28/18 at 07:00 Lorazepam (Ativan) 1 mg Q8 PRN PO AGITATION; Start 04/28/18 at 04:00 Miscellaneous Information 1 ea NOTE XX ; Start 04/28/18 at 04:30 Glucose (Glutose) 15 gm Q15M PRN PO DECREASED GLUCOSE; Start 04/28/18 at 04:30 Glucose (Glutose) 22.5 gm Q15M PRN PO DECREASED GLUCOSE; Start 04/28/18 at 04:30 Dextrose (D50w Syringe) 25 ml Q15M PRN IV DECREASED GLUCOSE; Start 04/28/18 at 04:30 Dextrose (D50w Syringe) 50 ml Q15M PRN IV DECREASED GLUCOSE; Start 04/28/18 at 04:30 Glucagon (Glucagen) 1 mg Q15M PRN IM DECREASED GLUCOSE; Start 04/28/18 at 04:30 Glucose (Glutose) 15 gm Q15M PRN BUCCAL DECREASED GLUCOSE; Start 04/28/18 at 04:30 Metoclopramide HCl (Reglan) 5 mg TID PO ; Start 04/28/18 at 12:07 DIVINA YAN MD Apr 28, 2018 15:10
[2018-04-28] MEDS ORDERED: traZODone 50 MG TAB PO SCH (21:00)
== END 2018-04-28 19:10 | disposition home health service (06) ==
LOC: E/R 23:54 → 6WM 04-28 01:28
PROVIDERS: ADMIT Family Medicine; ATTEND Family Medicine
DX: R07.9 Chest pain, unspecified (principal); I25.10 Atherosclerotic heart disease of native coronary artery without angina pectoris; Z95.5 Presence of coronary angioplasty implant and graft; Z95.1 Presence of aortocoronary bypass graft; I10 Essential (primary) hypertension; E78.5 Hyperlipidemia, unspecified; F32.9 Major depressive disorder, single episode, unspecified; E11.9 Type 2 diabetes mellitus without complications; M19.90 Unspecified osteoarthritis, unspecified site; K29.70 Gastritis, unspecified, without bleeding; Z79.4 Long term (current) use of insulin; Z79.82 Long term (current) use of aspirin; Z87.891 Personal history of nicotine dependence
CPT/HCPCS: 71045; 80048; 82550; 82553; 82962; 84484; 85025; 87081; G0378; J1815; J2270; J2405; 93005